=== PATIENT | male | born 1935 | race Caucasian/White ===

== ENCOUNTER 2017-01-21 11:20 | Inpatient (IN) ==
[2017-01-16 18:40] LABS: Basophils # (Auto) 0 K/mcL (0.0-0.3); Basophils % (Auto) 1.2 % (0.0-2.0); Eosinophils # (Auto) 0.2 K/mcL (0.0-0.7); Eosinophils % (Auto) 4.9 % (0.0-7.0); Granulocytes % (Auto) 35.6 % (38.0-78.0); Lymphocytes # (Auto) 1.5 K/mcL (1.5-4.8); Lymphocytes % (Auto) 47.6 % (15.5-49.0); Mean Cell Volume 109.7 fL (80.0-100.0); Mean Corpuscular Hemoglobin 38.4 pg (26.0-34.0); Monocytes # (Auto) 0.3 K/mcL (0.1-0.9); Monocytes % (Auto) 10.7 % (1.0-12.0); Platelet Count 197 K/mcL (140-440); RBC 2.39 M/mcL (4.50-5.90); Red Cell Distribution Width 15.2 % (11.5-14.5)
[2017-01-16 18:50] LABS: Blood Urea Nitrogen 20 mg/dl (8-23)
[2017-01-16 19:08] LABS: Appearance,Urine HAZY; Bacteria,Urine 0 /hpf (0); Bilirubin,Urine NEG (NEG); Color,Urine YELLOW; Glucose,Urine (UA) NEGATIVE (NEG); Leukocyte Esterase,Urine NEG /uL (NEG); Mucus,Urine MANY /hpf (0); Nitrate,Urine NEG (NEG); Protein,Urine 30 mg/dL (NEG); Urine Blood NEG mg/dL (<0.03); Urine RBC 1 /hpf (0-1); Urine Squamous Epithelial Cell 0 /hpf (0-4); Urine WBC 2 /hpf (0-4)
[~2017-01-21 11:20] MED LIST: ACETAMINOPHEN 500 MG TABLET PO SCH; CELECOXIB 200 MG CAPSULE PO SCH; KETOROLAC 30 MG, ROPIVACAINE HCL/PF 49.5 ML, EPINEPHrine 0.5 MG, 0.9 % SODIUM CHLORIDE ... IJ SCH; PREGABALIN 75 MG CAPSULE PO SCH; ceFAZolin 1 GM VIAL IV SCH; oxyCODONE 10 MG TAB.ER.12H PO SCH
[2017-01-21] MEDS ORDERED: GENTAMICIN SULFATE 800 MG/20 ML VIAL IR ONE (13:04)
[2017-01-21] MEDS ORDERED: PROMETHAZINE 25 MG/ML VIAL IV PRN (13:53)
[2017-01-21] MEDS ORDERED: BENZOCAINE/MENTHOL 1 LOZENGE PO PRN ×2 (13:53→14:31)
[2017-01-21] MEDS ORDERED: LACTATED RINGERS 250 ML IV PRN (13:53)
[2017-01-21] MEDS ORDERED: fentaNYL 100 MCG/2 ML VIAL IV PRN (13:53)
[2017-01-21] MEDS ORDERED: FLUMAZENIL 0.1 MG/ML ML IV PRN (13:53)
[2017-01-21] MEDS ORDERED: NALOXONE HCL 0.4 MG/ML VIAL IV PRN (13:53)
[2017-01-21] MEDS ORDERED: PROMETHAZINE 25 MG/ML VIAL IM PRN (13:53)
[2017-01-21] MEDS ORDERED: ONDANSETRON 4 MG/2 ML VIAL IV PRN ×2 (13:53→14:31)
[2017-01-21] MEDS ORDERED: METHOCARBAMOL 1,000 MG/10 ML VIAL IV PRN (13:53)
[2017-01-21] MEDS ORDERED: IPRATROPIUM/ALBUTEROL 3 ML AMPUL.NEB NEB PRN (13:53)
[2017-01-21] MEDS ORDERED: MEPERIDINE 25 MG/ML SYRINGE IV PRN (13:53)
[2017-01-21] MEDS ORDERED: diphenhydrAMINE 50 MG/ML VIAL IV PRN (13:53)
[2017-01-21] MEDS ORDERED: ePHEDrine 50 MG/ML AMPUL IV PRN (13:53)
[2017-01-21] MEDS ORDERED: MEPERIDINE 50 MG/ML SYRINGE IM PRN (13:53)
[2017-01-21] MEDS ORDERED: LACTATED RINGERS 1,000 ML IV SCH (14:00)
[2017-01-21] MEDS ORDERED: FLEETS ADULT ENEMA PR PRN (14:31)
[2017-01-21] MEDS ORDERED: BISACODYL 10 MG SUPP.RECT PR PRN (14:31)
[2017-01-21] MEDS ORDERED: ACETAMINOPHEN 325 MG TABLET PO PRN (14:31)
[2017-01-21] MEDS ORDERED: POLYETHYLENE GLYCOL 3350 17 GM PACKET PO PRN (14:31)
[2017-01-21] MEDS ORDERED: MAGNESIUM HYDROXIDE 30 ML ORAL.SUSP PO PRN (14:31)
[2017-01-21] MEDS ORDERED: TEMAZEPAM 15 MG CAPSULE PO PRN (14:31)
[2017-01-21] MEDS ORDERED: TRANEXAMIC ACID 1,000 MG/10 ML VIAL IV ONE (14:31)
--- NOTE | 2017-01-21 14:31 | Brief Operative Note ---
Date of procedure: 01/21/17 Pre-op diagnosis: Right knee medial djd Post-op diagnosis: same Procedure: right knee revision from patellar femoral to tka Grafts/Implants: Yes Anesthesia: GETA Complications: none Surgeon: Koko Burnette Process Plant Operator: Farooq Dean Estimated blood loss (cc): 50 Tourniquet Time (Minutes): 42 Specimens Removed/Pathology: none sent Condition: stable Disposition: PACU
--- NOTE | 2017-01-21 15:18 | XRay Report ---
CLINICAL INFORMATION: Postsurgical follow-up TECHNIQUE: AP and crosstable lateral right knee COMPARISON: Previous examination dated 04/09/2016 FINDINGS: Status post revision of right knee arthroplasty. There are now findings consistent with total knee arthroplasty. Femoral and tibial complements are in anatomic positions. There is soft tissue gas and intra-articular gas. IMPRESSION: Status post right total knee arthroplasty Interpreted and Authenticated by: Eugene Logan 01/21/17
--- NOTE | 2017-01-21 15:36 | Operative Note ---
DATE OF OPERATION: 01/21/2017 PREOPERATIVE DIAGNOSIS: Continued pain in the right knee with medial and anterolateral joint pain. POSTOPERATIVE DIAGNOSES: Continued pain in the right knee with medial and anterolateral joint pain with arthritis of the medial compartment. PROCEDURE: Right total knee arthroplasty revision from a patellofemoral joint to a total knee arthroplasty. SURGEON: Koko Burnette M.D. DIE TRIMMER: Farooq Dean PA-C. ANESTHESIA: General LMA anesthesia. COMPLICATIONS: None. TOTAL TOURNIQUET TIME: 42 minutes. ESTIMATED BLOOD LOSS: 50 mL. DESCRIPTION OF PROCEDURE: The patient was brought to the operating room and put to sleep with general LMA anesthesia. Once asleep, the patient had the right knee confirmed as the operative site after the time out and preop antibiotics and tranexamic acid given. We then made a midline incision, a mid vastus approach performed. Inspecting the knee revealed impingement of the lateral joint line of the patellofemoral joint, as well as severe arthritis of the medial femoral condyle with large linear areas of complete bone exposed, joint space narrowed medially, intact ACL and PCL. Lateral compartment appeared to be in good condition, and a small tear of the medial meniscus. With these findings, we converted the patient from a patellofemoral joint to a total knee arthroplasty. The patellofemoral joint was removed using flexible osteotomes. We placed two pins above and below the knee and registered thirty points within the joint on the femur and tibia. We registered the femoral intra-articular pins. We registered the center of hip rotation and registered the medial and lateral malleoli. We then brought in the robot after completely exposing the knee. We brought the robot in and registered the robot to confirm its position. We made our distal femoral cut and posterior chamfer cut. We changed the blade and then made our posterior, anterior cuts and our anterior chamfer cut. Bony fragments were removed. We then made our tibial cut, and these fragments were removed along with the meniscus remnants and osteophytes in the posterior femoral condyle. We injected the soft tissues of the posterior capsule with a post-inject formula. We then trialled and set rotation of the tibial baseplate. Once this was done, we then placed the femoral component. It seemed to fit very nicely. Once done, we then trialed the size 11 and then a 9 poly. The patient's 9 seemed to fit the best. It was the most appropriate in tension in both flexion and extension. The 11 had 4 degrees of flexion contracture. The 9 had 0 degrees extension. He started at +2 extension preoperatively. With these findings, we then cemented into place the tibial baseplate, the femoral component. Excess cement was removed. A 9 mm poly was inserted. The knee was kept at 45 degrees until all the cement was dry. We then took the knee through range of motion. This patella wanted to track a little bit laterally and so a small lateral release was performed. We then irrigated and repaired the medial capsule with #1 Stratafix x2 stitches. We took the knee through range of motion, achieving easily full range of motion. The intra-articular pins were removed, as well as the femoral and tibial pins and arrays. We then closed the wounds with 4-0 nylon above and below the knee, and then the knee was closed with adhesive closure. A sterile bandage was applied. The patient left the operating room after deflating the tourniquet at 42 minutes. There was no complication. RBDomo:carirngton Job ID: [id number] Doc ID: [id number] Koko Burnette MD
[2017-01-21] MEDS: oxyCODONE/APAP 5/325MG TABLET PO PRN ×2 (16:28→21:01)
[2017-01-21] MEDS: 0.45 % SODIUM CHLORIDE 1,000 ML IV SCH (16:39)
[2017-01-21] MEDS: KETOROLAC 15 MG/ML VIAL IV SCH ×2 (17:36→23:49)
[2017-01-21] MEDS: HYDROmorphone 2 MG/ML SYRINGE IV PRN ×2 (18:42→20:58)
[2017-01-21] MEDS ORDERED: SENNOSIDES 1 TABLET PO SCH (21:00)
[2017-01-21] MEDS: ASPIRIN 325 MG ENTERIC COATED TABLET PO SCH (21:00)
[2017-01-21] MEDS: DOCUSATE SODIUM 100 MG CAPSULE PO SCH (21:01)
[2017-01-21] MEDS: 0.9 % SODIUM CHLORIDE 10 ML SYRINGE IV SCH (21:01)
[2017-01-21] MEDS: ceFAZolin 1 GM VIAL IV SCH (21:08)
[2017-01-22] MEDS: oxyCODONE/APAP 5/325MG TABLET PO PRN ×3 (00:52→09:50)
[2017-01-22] MEDS: 0.45 % SODIUM CHLORIDE 1,000 ML IV SCH ×2 (00:53→10:45)
[2017-01-22] MEDS: ceFAZolin 1 GM VIAL IV SCH (05:16)
[2017-01-22] MEDS: KETOROLAC 15 MG/ML VIAL IV SCH ×2 (05:22→12:36)
[2017-01-22] MEDS: 0.9 % SODIUM CHLORIDE 10 ML SYRINGE IV SCH (05:35)
[2017-01-22] MEDS ORDERED: LEVOTHYROXINE 50 MCG TABLET PO SCH (07:30)
[2017-01-22] MEDS ORDERED: OMEPRAZOLE 20 MG CAPSULE PO SCH (07:30)
--- NOTE | 2017-01-22 07:33 | Orthopedic Progress Note ---
Subjective Patient information: Note initiated : 01/22/17 at 7:32 am Service Date, if different from initiated Date: [] Patient: Donte Quispe 81 y/o M admitted on 01/21/17 for Right Total Knee Arthroplasty Robotic From. Chief Complaint: [Pt is stable this morning on post operative day 1 without any significant concerns or complaints. Patients vital signs have remained stable. Patients dressing is dry and exhibits a grossly intact neurovascular and neuromotor exam. Patients 10 point ROS is otherwise negative. ] Objective Vital signs: Vital Signs Temp Pulse Resp BP BP Pulse Ox 01/22/17 07:11 18 96 01/22/17 07:09 96 01/22/17 03:03 97.3 F 71 22 123/54 97 01/21/17 23:30 97.6 F 76 24 H 138/55 96 01/21/17 20:00 97.7 F 76 24 H 142/64 96 01/21/17 17:30 71 124/57 94 01/21/17 17:00 88 140/63 91 01/21/17 16:15 61 129/58 100 01/21/17 16:00 59 L 127/58 100 01/21/17 15:45 60 120/58 100 01/21/17 15:35 98.0 F 61 20 114/57 100 01/21/17 15:20 63 17 115/48 100 01/21/17 15:14 69 13 114/44 98 01/21/17 15:03 68 14 114/65 98 01/21/17 14:59 74 14 106/41 95 01/21/17 14:55 71 12 112/46 99 01/21/17 14:48 99.5 F H 67 12 109/45 100 01/21/17 11:20 97.4 F 62 24 H 119/57 100 Intake and Output 01/21/17 01/22/17 01/22/17 21:59 05:59 13:59 Intake Total 2532 / 2532 1273 / 1273 Output Total 675 / 675 1125 / 1125 Balance 1857 / 1857 148 / 148 Intake: IV 1300 / 1300 823 / 823 Sodium Chloride 0.45% 1,000 ml 823 / 823 @ 100 mls/hr IV .Q10H SONU Rx#: [id number] Oral 1140 / 1140 450 / 450 IV - Manual Only 92 / 92 Output: Void Amount 475 / 475 1125 / 1125 Estimated Blood Loss 200 / 200 Other: Meal Dinner Percent of Meal Consumed 100% # Voids 1 Weight 202 lb 8 oz Intake & Output: Intake & Output 01/21/17 01/22/17 01/22/17 21:59 05:59 13:59 Intake Total 2532 / 2532 1273 / 1273 Output Total 675 / 675 1125 / 1125 Balance 1857 / 1857 148 / 148 Weight 202 lb 8 oz Intake: IV 1300 / 1300 823 / 823 Sodium Chloride 0.45% 1,000 ml 823 / 823 @ 100 mls/hr IV .Q10H SONU Rx#: [id number] Oral 1140 / 1140 450 / 450 IV - Manual Only Output: Void Amount 475 / 475 1125 / 1125 Estimated Blood Loss 200 / 200 Other: Meal Dinner Percent of Meal Consumed 100% # Voids 1 Incision: Yes healing Incision clean and dry: Yes Dressing: Yes clean Weight bearing status: full Neurological exam IM: Yes motor sensory intact, Yes neurovascular intact Extremities exam IM: Yes Foot pink and warm, Yes neurovascular intact - Labs CBC & BMP: 01/22/17 04:25 01/16/17 16:41 Labs: Orthopedic Labs 01/21/17 01/16/17 11:34 16:41 PT 15.2 H INR 1.2 H APTT 33 30 01/22/17 01/16/17 04:25 16:41 Hgb 9.2 L Hct 20.4 L* 26.2 L Assessment and Plan (1) Hx of total knee arthroplasty The patient has been educated regarding dressing care, Physical Therapy recommendations, home exercises, restrictions, and follow up appointments. The patient has had all necessary DME prescribed. The patient has remained stable during their hospital course. The patient was discharge with a stable exam. Status: Acute
--- NOTE | 2017-01-22 07:37 | Discharge Summary ---
Ortho Discharge - TKA - Patient Instructions Diet: Regular Diet Activity: activity as tolerated, weight bearing as tolerated Total Knee Protocol: For Total Knee: Start ROM [place] with stationary bike or rocking chair. Work on gaining full extension of knee. Posterior dislocation precautions provided. Hip abductor strengthening and gait training instructions provided. Apply Cryocuff as instructed. Dressing Care: May shower in 3 days, Aquacel Ag - leave on for 5 days Patient Education: Total Knee Replacement (DC) - Problem Maintenance (1) Hx of total knee arthroplasty Status: Acute - Follow Up Plan Follow Up Appointments: Koko Burnette MD [Physician] - 02/05/17 11:20 am Disposition: Home, Self-Care Prognosis: Good Rehab Potential: Good I certify that the patient requires SNF services: No Overall status at discharge: patient is progressing back to baseline - Orders For Discharge Prescriptions: Aspirin [Ecotrin] 325 mg PO BID #75 tab.ec Docusate Sodium [Colace] 100 mg PO BID #60 cap oxyCODONE/APAP [Percocet 5-325 mg] 1 - 2 tab PO Q4HP PRN #75 tab PRN Reason: Pain
[2017-01-22] MEDS ORDERED: MAGNESIUM OXIDE 400 MG TABLET PO SCH (09:00)
[2017-01-22] MEDS ORDERED: DULoxetine 30 MG CAPSULE PO SCH (09:00)
[2017-01-22] MEDS ORDERED: VITAMIN B COMPLEX 1 CAPSULE PO SCH (09:00)
[2017-01-22] MEDS ORDERED: VITAMIN D3 1,000 UNIT TABLET PO SCH (09:00)
[2017-01-22] MEDS: ASPIRIN 325 MG ENTERIC COATED TABLET PO SCH (09:41)
[2017-01-22] MEDS: DOCUSATE SODIUM 100 MG CAPSULE PO SCH (09:41)
[2017-01-22] MEDS ORDERED: ROPIVACAINE HCL/PF 20 ML VIAL IJ ONE (12:50)
[2017-01-22] MEDS ORDERED: ONDANSETRON 4 MG/2 ML VIAL IV ONE (12:50)
[2017-01-22] MEDS ORDERED: DEXAMETHASONE 10 MG/ML VIAL IV ONE (12:50)
[2017-01-22] MEDS ORDERED: TRANEXAMIC ACID 1,000 MG/10 ML VIAL IV ONE (12:50)
[2017-01-22] MEDS ORDERED: MIDAZOLAM 2 MG/2 ML VIAL IV ONE (12:50)
[2017-01-22] MEDS ORDERED: LIDOCAINE HCL/PF 100 MG/5 ML SYRINGE IV ONE (12:50)
[2017-01-22] MEDS ORDERED: PROPOFOL 200 MG/20 ML VIAL IV ONE (12:50)
== END 2017-01-22 14:05 | disposition home or self-care (01) | DRG 470 ==
LOC: MEDSUR 11:20
PROVIDERS: ADMIT Orthopaedic Surgery; ATTEND Orthopaedic Surgery

== ENCOUNTER 2019-07-17 13:45 | Inpatient (IN) ==
--- NOTE | 2019-07-17 14:21 | Emergency Department Note ---
Fall HPI - General Chief Complaint: Fall Stated Complaint: fall Time Seen by Provider: 07/17/19 14:00 Source: patient Mode of arrival: ambulatory - History of Present Illness HPI Narrative: 83-year-old male patient presents emergency department with chief complaint of worsening right hip and right knee pain associated with a fall earlier this morning. Patient tells me he was in [place] at a [facility] clinic when he abruptly stood up becoming dizzy. He has known history of syncopal episodes and fell during this time. The staff at the clinic did some form evaluation and told him that "my blood pressure dropped too fast". He told them about the pain in his right hip and they simply told him to get further evaluated later on. Patient took a dose of tramadol as he came home but tells me this is not been very effective. Upon arrival, his chief complaint would be exquisite right hip pain. He admits to not being able to ambulate secondary to the pain. He mentions a previous history of total right knee replacement. He admits to having some form of injection to his right knee, right hip, and right side of his low back yesterday by the pain specialist Dr. Farah). Patient denies any radiculopathy. He denies any saddle anesthesia or bowel/bladder incontinence. He denies any preceding vision changes, shortness of breath, or chest pain prior to falling. He denies any recent illnesses, fever, sweats, chills. He denies any abdominal pain, nausea, vomiting, or diarrhea. 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 - Related Data Home Medications Medication Instructions Recorded Confirmed Magnesium 400 mg PO QDAY 04/04/16 07/17/19 Vitamin B Complex 1 cap PO DAILY 12/19/16 07/17/19 cholecalciferol (vitamin D3) 25 5,000 unit PO DAILY tab 12/11/18 07/17/19 mcg (1,000 unit) tablet levothyroxine 75 mcg capsule 50 mcg PO QDAY 12/29/18 07/17/19 blood sugar diagnostic See Rx Instructions .ROUTE 05/06/19 07/17/19 .MEDSUPPLY #10 each blood-glucose meter, drum-type See Rx Instructions .ROUTE 05/06/19 07/17/19 .MEDSUPPLY #1 each lancets See Rx Instructions .ROUTE 05/06/19 07/17/19 .MEDSUPPLY #50 each tamsulosin 0.4 mg capsule 0.4 mg PO QDAY 05/07/19 07/17/19 Ascorbic Acid [Vitamin C] 1,000 mg PO DAILY 07/17/19 07/17/19 Multivitamin/Iron/Folic Acid 1 each PO DAILY 07/17/19 07/17/19 [Centrum Adults Tablet] Vitamin K2 180 mcg PO TID 07/17/19 07/17/19 Previous Rx's Medication Instructions Recorded omeprazole 40 mg capsule,delayed 40 mg PO QDAY #90 cap 01/13/19 release trazodone 50 mg tablet 50 - 100 mg PO QHS #180 tab 05/29/19 Allergies Allergy/AdvReac Type Severity Reaction Status Date / Time No Known Drug Allergies Allergy Verified 06/01/19 14:44 Review of Systems All systems ED: reviewed and negative except as stated. Fall PMH - Social History smoking status: Never smoker Physical Exam Limitations: no limitations General appearance: alert, grimacing (Well-developed, well-nourished, 83-year-old male patient laying semirecumbent on the emergency room gurney in no acute respiratory distress. He does grimace considerably during musculoskeletal exam of his right hip.), in no apparent distress, other Head: atraumatic, normocephalic Eye: Present: normal appearance, PERRL, EOMI. Absent: scleral icterus, conjunctival injection ENT: Present: normal oropharynx, mucous membranes moist Neck: Present: normal inspection, full ROM, trachea midline, lymphadenopathy. Absent: tenderness Chest: Present: symmetric chest wall rise Respiratory: Present: normal lung sounds bilaterally. Absent: respiratory distress, wheezes, stridor, accessory muscle use, prolonged expiratory phase Cardiovascular: Present: regular rate, normal rhythm, systolic murmur. Absent: diastolic murmur Abdominal: Present: soft. Absent: distention, tenderness, guarding, rebound, rigidity, organomegaly, mass Extremities: Present: normal inspection, tenderness (Tenderness palpation to the right greater trochanter.), normal capillary refill. Absent: full ROM (Decreased range of motion to the right hip secondary to worsening pain), pedal edema Neurological: Present: alert, oriented X3, reflexes normal. Absent: normal gait, motor sensory deficit Psychiatric: Present: normal affect, normal mood Skin: Present: warm, dry, pallor Course Course Narrative: Patient was brought into the emergency department and a history and physical exam was performed. Screening laboratory studies were performed. Orthostatic vital signs were ordered and reviewed. Patient has longstanding history of syncope associated with orthostatic hypotension. He has a robust neurologic examination and no other neuro imaging seems warranted at this time. Patient has considerable pain with any movement of his right hip. This, coupled with recent fall today, necessitates radiographs of the right hip be ordered and reviewed. Patient is in no considerable pain while laying motionless so no additional pain medication is going to be provided at this time. We may give him pain medication during his visit if his pain worsens. Upon reevaluation patient tells me his pain is worsening over time. Radiographs of the affected hip showed a femoral neck fracture that may represent avascular necrosis. Radiologist did recommend CT scan of the right hip to help clarify the injury. During this time an IV was established patient was given Dilaudid 0.[address] scan was ordered as recommended. Upon reevaluation patient tells me that his pain is well controlled with 1 dose of IV pain medication. CT scan results showed subcapital fracture of the right femoral neck. There is also mention of osteoarthritis to both hips. With this in mind, I reached out to the on-call orthopedic surgeon (Dr. Becker) I discussed the case with him. At this time Dr. Becker recommended that we speak to the hospitalist about having the patient admitted to the medical service. He would then consult in as the orthopedic surgeon to help correct hip fracture. With this in mind, I reached out to the hospitalist (Dr. Brown) and discussed the case with him. At this time Dr. Brown has accepted to admit the patient into the medical service with Dr. Becker consulting about the fracture management. At this time all further treatment decisions, modalities, and ultimate patient disposition will be carried out by Dr. Brown with Dr. Becker in consultation. Vital Signs Temperature 97.7 F 07/17/19 13:46 Pulse Rate 65 07/17/19 13:46 Respiratory Rate 07/17/19 13:46 Blood Pressure 107/92 07/17/19 13:46 Pulse Oximetry (%) 100 07/17/19 13:46 Temperature 97.7 F 07/17/19 13:46 Pulse Rate 76 07/17/19 17:20 Respiratory Rate 07/17/19 13:46 Blood Pressure 124/53 07/17/19 17:20 Pulse Oximetry (%) 98 07/17/19 17:20 Fall - Lab Data Lab results reviewed: Yes I reviewed the patient's lab results. Result diagrams: 07/17/19 14:20 07/17/19 14:20 Lab Results 07/17/19 07/17/19 Range/Units 14:20 14:20 WBC 12.5 H (4.50-11.00) K/mcL RBC 2.13 L (4.63-6.08) M/mcL Hgb 8.6 L (13.7-17.5) g/dL Hct 23.6 L (40.1-51.0) % MCV 110.8 H (80.0-100.0) fL MCH 40.4 H (26.0-34.0) pg MCHC 36.4 H (31.0-36.0) g/dL RDW 15.5 H (11.5-14.5) % Plt Count 225 (140-440) K/mcL MPV 12.0 H (7.4-10.4) fL Gran % 89.8 H (38.0-78.0) % Lymph % (Auto) 5.6 L (15.5-49.0) % [place] % (Auto) 4.4 (1.0-12.0) % Eos % (Auto) 0 (0.0-7.0) % Baso % (Auto) 0.2 (0.0-2.0) % Gran # 11.23 H (1.80-8.00) K/mcL Lymph # (Auto) 0.70 L (1.50-4.80) K/mcL [place] # (Auto) 0.55 (0.10-0.90) K/mcL Eos # (Auto) 0 (0.00-0.70) K/mcL Baso # (Auto) 0.02 (0.00-0.30) K/mcL Sodium 136 (133-145) mmol/L Potassium 3.8 (3.3-5.1) mmol/L Chloride 102 (96-108) mmol/L Carbon Dioxide 23 (22-30) mmol/L Anion Gap 11.0 (8-16) BUN 23 (8-23) mg/dl Creatinine 0.9 (0.7-1.2) mg/dl GFR Calculation 78 Glucose 124 H (70-105) mg/dL Calcium 9.5 (8.6-10.4) mg/dl Total Bilirubin 1.5 H (0.0-1.0) mg/dL AST 29 (0-37) U/l ALT 25 (0-40) U/l Alkaline Phosphatase 56 (39-117) U/L Total Protein 7.0 (5.9-8.4) gm/dL Albumin 4.7 (3.2-5.2) gm/dL Globulin 2.3 (2.2-3.7) gm/dL Albumin/Globulin Ratio 2.0 (1.0-2.3) - Radiology Data Radiology results reviewed: Yes I reviewed the patient's radiology results. Ordering Physician: Panchito Armenta PA-C Date of Service: 07/17/19 Procedure(s): XR hip RT comp 2VW Accession Number(s): [id number] HISTORY: Right hip pain and unable to bear weight FINDINGS: There is a subtle contour deformity along the weightbearing portion of the femoral head. There is a subchondral lucency along the top of the femoral head. Small fracture seen in the cortex along the lateral border of the femoral head and neck joint. The joint space is mildly narrowed along the medial aspect. There are small periarticular soft tissue calcifications. Mild arthritis is present in the left hip with is no fracture or destructive lesion. There is disc degeneration and arthritis in the lumbar spine. The bones are osteopenic. IMPRESSION: fractured right femoral head and neck. There may be underlying avascular necrosis. Ordering Physician: Panchito Armenta PA-C Date of Service: 07/17/19 Procedure(s): CT pelvis wo con Accession Number(s): [id number] History: Fell and right hip fracture TECHNIQUE: The pelvis was imaged without contrast at 2.5 mm intervals. Sagittal and coronal reformats were created. The radiation exposure was limited using dose reduction technology. FINDINGS: There is an acute subcapital fracture in the right femoral neck. There is minimal impaction at the fracture site and no angulation. There is underlying osteoarthritis with a ring of spurs forming along the margin of the femoral head and there are subchondral cysts in the femoral head. Joint spaces moderately narrowed along the medial aspect due to arthritis. No pelvic fractures present. The left hip has mild to moderate arthritis but there is no fracture. The bones throughout the pelvis are osteoporotic. There is no evidence of avascular necrosis. Severe disc degeneration is present at L5-S1 with moderate degeneration at L3-4 and L4-5. SI joints are normal. No pelvic hematoma is present. IMPRESSION: Subcapital fracture in the right femoral neck Osteoarthritis in both hips Panchito Armenta was called with the results Interpreted and Authenticated by: He Pantoja 07/17/19 Disposition Pt seen by MANAGER COMMODITIES/PA only: Yes Clinical Impression: Orthostatic hypotension Closed right hip fracture Qualifiers: Encounter type: initial encounter Qualified Code(s): S72.001A - Fracture of unspecified part of neck of right femur, initial encounter for closed fracture Disposition: Xfer As Inpt ([facility]) Condition: Good Referrals: Katie Elliott ARNP [Primary Care Provider] -
--- NOTE | 2019-07-17 14:50 | XRay Report ---
HISTORY: Right hip pain and unable to bear weight FINDINGS: There is a subtle contour deformity along the weightbearing portion of the femoral head. There is a subchondral lucency along the top of the femoral head. Small fracture seen in the cortex along the lateral border of the femoral head and neck joint. The joint space is mildly narrowed along the medial aspect. There are small periarticular soft tissue calcifications. Mild arthritis is present in the left hip with is no fracture or destructive lesion. There is disc degeneration and arthritis in the lumbar spine. The bones are osteopenic. IMPRESSION: fractured right femoral head and neck. There may be underlying avascular necrosis. Interpreted and Authenticated by: He Pantoja 07/17/19
[2019-07-17 14:57] LABS: Basophils # (Auto) 0.02 K/mcL (0.00-0.30); Basophils % (Auto) 0.2 % (0.0-2.0); Eosinophils # (Auto) 0 K/mcL (0.00-0.70); Eosinophils % (Auto) 0 % (0.0-7.0); Granulocytes % (Auto) 89.8 % (38.0-78.0); Hematocrit 23.6 % (40.1-51.0); Hemoglobin 8.6 g/dL (13.7-17.5); Lymphocytes % (Auto) 5.6 % (15.5-49.0); Mean Cell Volume 110.8 fL (80.0-100.0); Mean Corpuscular HGB Conc 36.4 g/dL (31.0-36.0); Monocytes # (Auto) 0.55 K/mcL (0.10-0.90); Monocytes % (Auto) 4.4 % (1.0-12.0); Platelet Count 225 K/mcL (140-440); RBC 2.13 M/mcL (4.63-6.08); Red Cell Distribution Width 15.5 % (11.5-14.5); WBC 12.5 K/mcL (4.50-11.00)
[2019-07-17 15:12] LABS: ALT/SGPT 25 U/l (0-40); AST/SGOT 29 U/l (0-37); Albumin 4.7 gm/dL (3.2-5.2); Alkaline Phosphatase 56 U/L (39-117); Bilirubin,Total 1.5 mg/dL (0.0-1.0); Blood Urea Nitrogen 23 mg/dl (8-23); Calcium 9.5 mg/dl (8.6-10.4); Carbon Dioxide 23 mmol/L (22-30); Chloride 102 mmol/L (96-108); Globulin 2.3 gm/dL (2.2-3.7); Glomerular Filtration Rate 78; Glucose 124 mg/dL (70-105)
[2019-07-17] MEDS ORDERED: HYDROmorphone 0.5 MG/0.5 ML SYRINGE IV PRN ×3 (15:42→20:51)
--- NOTE | 2019-07-17 16:22 | Cat Scan Report ---
History: Fell and right hip fracture TECHNIQUE: The pelvis was imaged without contrast at 2.5 mm intervals. Sagittal and coronal reformats were created. The radiation exposure was limited using dose reduction technology. FINDINGS: There is an acute subcapital fracture in the right femoral neck. There is minimal impaction at the fracture site and no angulation. There is underlying osteoarthritis with a ring of spurs forming along the margin of the femoral head and there are subchondral cysts in the femoral head. Joint spaces moderately narrowed along the medial aspect due to arthritis. No pelvic fractures present. The left hip has mild to moderate arthritis but there is no fracture. The bones throughout the pelvis are osteoporotic. There is no evidence of avascular necrosis. Severe disc degeneration is present at L5-S1 with moderate degeneration at L3-4 and L4-5. SI joints are normal. No pelvic hematoma is present. IMPRESSION: Subcapital fracture in the right femoral neck Osteoarthritis in both hips Panchito Armenta was called with the results Interpreted and Authenticated by: He Pantoja 07/17/19
--- NOTE | 2019-07-17 17:22 | Orthopedic History & Physical ---
History of Present Illness Patient information: Note initiated : 07/17/19 at 5:19 pm Service Date, if different from initiated Date: [] Patient: Sundeep Quispe 83 y/o M admitted on for fall. Chief Complaint: R Hip Pain s/p fall. HPI: Mr. Quispe is a 83 year old M Pt admits to falling earlier today when he became dizzy and lightheaded. Pt admits to a history of syncopal episodes. Pt was being seen for another problem at a medical clinic in [place] when he fell. I quick evaluation was done and they recommended that he seek further treatment when he got home. He continued to have worsening pain and presented to the ED. X-rays and CT scan done and Ortho was consulted. Review of Systems Constitutional: as per HPI Cardiovascular: as per HPI, lightheadedness Musculoskeletal: right: hip pain, knee pain Integumentary: as per HPI, erythema, furuncle, hirsutism, lesions, new lesions, non-healing lesions, photosensitivity, pruritus, rash, skin pain, acne, skin ulcer, sores, striae, swelling, unusual bruising, wounds, jaundice, other, alopecia, bleeding lesions, change in hair, change in nails, change in pigmentation, changing lesions, dry skin Neurological: no as per HPI, no disequilibrium, no dizziness, no focal weakness, no frequent falls, no headache(s), no lack of coordination, no loss of vision, no memory loss, no numbness, no paresthesias, no abnormal gait, no radicular pain, no restless legs, no sensory deficit, no syncope, no tingling, no tremor(s), no vertigo, no weakness, no other visual disturbances, no other, no abnormal hearing, no abnormal movements, no abnormal speech, no behavioral changes, no burning sensations, no confusion, no convulsions Medications and Allergies Home Medications Medication Instructions Recorded Confirmed Type Magnesium 400 mg PO QDAY 04/04/16 07/17/19 History Vitamin B Complex 1 cap PO DAILY 12/19/16 07/17/19 History cholecalciferol (vitamin D3) 25 10,000 unit PO DAILY tab 12/11/18 06/01/19 History mcg (1,000 unit) tablet levothyroxine 75 mcg capsule 50 mcg PO QDAY 12/29/18 07/17/19 History omeprazole 40 mg capsule,delayed 40 mg PO QDAY #90 cap 01/13/19 07/17/19 Rx release blood sugar diagnostic See Rx Instructions .ROUTE 05/06/19 06/01/19 History .MEDSUPPLY #10 each blood-glucose meter, drum-type See Rx Instructions .ROUTE 05/06/19 06/01/19 History .MEDSUPPLY #1 each lancets See Rx Instructions .ROUTE 05/06/19 06/01/19 History .MEDSUPPLY #50 each tamsulosin 0.4 mg capsule 0.4 mg PO QDAY 05/07/19 07/17/19 History trazodone 50 mg tablet 50 - 100 mg PO QHS #180 tab 05/29/19 07/17/19 Rx Ascorbic Acid [Vitamin C] 1,000 mg PO DAILY 07/17/19 07/17/19 History Multivitamin/Iron/Folic Acid 1 each PO DAILY 07/17/19 07/17/19 History [Centrum Adults Tablet] Vitamin K2 180 mcg PO TID 07/17/19 07/17/19 History Allergies Allergy/AdvReac Type Severity Reaction Status Date / Time No Known Drug Allergies Allergy Verified 06/01/19 14:44 Results - Labs Result Diagrams: 07/17/19 14:20 07/17/19 14:20 Labs: Abnormal lab results 07/17/19 07/17/19 Range/Units 14:20 14:20 WBC 12.5 H (4.50-11.00) K/mcL RBC 2.13 L (4.63-6.08) M/mcL Hgb 8.6 L (13.7-17.5) g/dL Hct 23.6 L (40.1-51.0) % MCV 110.8 H (80.0-100.0) fL MCH 40.4 H (26.0-34.0) pg MCHC 36.4 H (31.0-36.0) g/dL RDW 15.5 H (11.5-14.5) % MPV 12.0 H (7.4-10.4) fL Gran % 89.8 H (38.0-78.0) % Lymph % (Auto) 5.6 L (15.5-49.0) % Gran # 11.23 H (1.80-8.00) K/mcL Lymph # (Auto) 0.70 L (1.50-4.80) K/mcL Glucose 124 H (70-105) mg/dL Total Bilirubin 1.5 H (0.0-1.0) mg/dL H & H 07/17/19 Range/Units 14:20 Hgb 8.6 L (13.7-17.5) g/dL Hct 23.6 L (40.1-51.0) % All other labs normal.
[2019-07-17] MEDS ORDERED: PROCHLORPERAZINE 10 MG/2 ML VIAL IV PRN ×2 (18:21→20:51)
[2019-07-17] MEDS ORDERED: DEXTROSE 31 GM ORAL.SUSP PO PRN ×2 (18:21→20:51)
[2019-07-17] MEDS ORDERED: DEXTROSE 50% 50 ML VIAL IV PRN ×2 (18:21→20:51)
[2019-07-17] MEDS ORDERED: ONDANSETRON 4 MG/2 ML VIAL IV PRN ×3 (18:21→20:51)
[2019-07-17 18:25] LABS: INR 1.2 (0.9-1.1); Prothrombin Time 15.4 sec (11.9-14.5)
[2019-07-17] MEDS ORDERED: traMADol 50 MG TABLET PO PRN (18:26)
[2019-07-17] MEDS ORDERED: 0.9 % SODIUM CHLORIDE 1,000 ML IV SCH ×2 (18:30→20:51)
--- NOTE | 2019-07-17 18:46 | Internal Med History&Physical ---
Medical - H&P: [facility] Patient information: Note initiated : 07/17/19 at 6:38 pm Service Date, if different from initiated Date: [] Patient: Sundeep Quispe a 83 y/o M admitted on for fall. Chief Complaint: [fall and right hip pain] History of present illness: Mr. Quispe is a 83 year old M with a past medical history of aortic stenosis, hypothyroidism, orthostatic hypotension, near syncope, and diabetes who was brought to the ER due to 1 episode of fall and right hip pain. As per patient, he felt dizzy and fell in the early this morning when he he abruptly stood up in a clinic. He was told by the staff at clinic "blood pressure dropped too fast". He denies loss of consciousness and injury to his head. In the ER, Xray showed subcapital fracture in the right femoral neck. Orth Dr. Becker was consulted, who will probably give pt a procedural intervention. When I saw this patient in the ER, other than the symptoms mentioned above, he denied headache, dizziness, chest pain, shortness of breath, abdominal pain, nausea, vomiting, or dysuria. No tingling or numbness of legs. No urinary or bowel incontinence. No recent travel or sick contact. Review of systems: Positive for right hip pain. All other systems were reviewed and are negative. Medical - H&P: PMH Family history: reviewed and not pertinent (Mother had Alzheimer's disease; father had a cancer) Have you smoked in the last 12 months: No Drug use: none Alcohol use: none Medical - H&P: Meds Home Medications Medication Instructions Recorded Confirmed Type Magnesium 400 mg PO QDAY 04/04/16 07/17/19 History Vitamin B Complex 1 cap PO DAILY 12/19/16 07/17/19 History cholecalciferol (vitamin D3) 25 5,000 unit PO DAILY tab 12/11/18 07/17/19 History mcg (1,000 unit) tablet levothyroxine 75 mcg capsule 50 mcg PO QDAY 12/29/18 07/17/19 History omeprazole 40 mg capsule,delayed 40 mg PO QDAY #90 cap 01/13/19 07/17/19 Rx release blood sugar diagnostic See Rx Instructions .ROUTE 05/06/19 07/17/19 History .MEDSUPPLY #10 each blood-glucose meter, drum-type See Rx Instructions .ROUTE 05/06/19 07/17/19 History .MEDSUPPLY #1 each lancets See Rx Instructions .ROUTE 05/06/19 07/17/19 History .MEDSUPPLY #50 each tamsulosin 0.4 mg capsule 0.4 mg PO QDAY 05/07/19 07/17/19 History trazodone 50 mg tablet 50 - 100 mg PO QHS #180 tab 05/29/19 07/17/19 Rx Ascorbic Acid [Vitamin C] 1,000 mg PO DAILY 07/17/19 07/17/19 History Multivitamin/Iron/Folic Acid 1 each PO DAILY 07/17/19 07/17/19 History [Centrum Adults Tablet] Vitamin K2 180 mcg PO TID 07/17/19 07/17/19 History Allergies Allergy/AdvReac Type Severity Reaction Status Date / Time No Known Drug Allergies Allergy Verified 06/01/19 14:44 Medical - H&P: Exam - Constitutional Vitals: Temp Pulse Resp BP Pulse Ox 97.7 F 81 20 119/57 99 07/17/19 13:46 07/17/19 18:29 07/17/19 13:46 07/17/19 18:05 07/17/19 18:29 - Other Additional findings: General - No acute distress Eyes - PERRLA, EOM intact ENT no rhinorrhea, no noticeable or palpable swelling, no redness or rash around throat or on face Neck supple, no JVD, no thyromegaly Respiratory: Lungs -clear, no wheezing or crackles. Cardiovascular - RRR no r/g, mild systolic murmur over precardial area. GI - Normal bowel sounds, no distended, soft. Extremeties - No edema, cyanosis or clubbing. Moderate tenderness over the right hip area. Hemo/lymphatic/immune no lymphadenopathy Neurological Alert and oriented x 3, no focal neurological deficits. No numbness in both legs Psychiatry flat affect Medical - H&P: Reslt - Labs CBC & Chem 7: 07/17/19 14:20 07/17/19 14:20 Labs: Short CBC 07/17/19 Range/Units 14:20 WBC 12.5 H (4.50-11.00) K/mcL Hgb 8.6 L (13.7-17.5) g/dL Hct 23.6 L (40.1-51.0) % Plt Count 225 (140-440) K/mcL BMP 07/17/19 14:20 Sodium 136 Potassium 3.8 Chloride 102 Carbon Dioxide 23 BUN 23 Creatinine 0.9 Glucose 124 H Calcium 9.5 Liver Function 07/17/19 Range/Units 14:20 Total Bilirubin 1.5 H (0.0-1.0) mg/dL AST 29 (0-37) U/l ALT 25 (0-40) U/l Alkaline Phosphatase 56 (39-117) U/L Albumin 4.7 (3.2-5.2) gm/dL Medical - H&P: A/P - Narrative A/P Narrative: Assessment: 1. Subcapital fracture in the right femoral neck 2. Aortic stenosis 3. Hypothyoidism 4. Orthostatic hypotension 5. Near syncope 6. 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 Leukocytosis 8. Mechanical fall Plan: 1. X-ray showed Subcapital fracture in the right femoral neck Orthopedist Dr. Becker will do a procedure for his hip fracture. Revised Cardiac Risk Index for Pre-Operative Risk - low. NPO IVF pain management including iv dilaudid 2. Control BP. teletypesetter monitor 3. continue home Synthroid 4. for History of orthostatic hypotension and near syncope, closely monitor his blood pressure. His blood pressure is stable now PT OT He may need assessment from a cardiology and neurology as an patient 5. She is not on insulin Insulin sliding scale 6. Since no focal positive neurological deficits or headache, I will not order a CT of her head at this moment Monitor 7. DVT prophylaxis: No pharmacological DVT prophylaxis at this moment because he will have a procedure 8. CODE STATUS: Full
[2019-07-17] MEDS ORDERED: ceFAZolin 2 GM in DEXTROSE 5% IN WATER 50 ML IV SCH (19:15)
[2019-07-17 19:19] LABS: Hemoglobin A1C 5.4 % HGB (4.0-6.0)
[2019-07-17] MEDS ORDERED: LIDOCAINE HCL/PF 100 MG/5 ML SYRINGE IV ONE (19:25)
[2019-07-17] MEDS ORDERED: KETAMINE 100 MG/ML ML IV ONE (19:25)
[2019-07-17] MEDS ORDERED: PROPOFOL 200 MG/20 ML VIAL IV ONE (19:25)
[2019-07-17] MEDS ORDERED: ONDANSETRON 4 MG/2 ML VIAL IV ONE (19:25)
[2019-07-17] MEDS ORDERED: DEXAMETHASONE 10 MG/ML VIAL IV ONE (19:25)
--- NOTE | 2019-07-17 19:59 | History and Physical Report ---
DATE OF ADMISSION: 07/17/2019 CHIEF COMPLAINT: Right hip pain status post fall. HISTORY OF PRESENT ILLNESS: The patient is an 83-year-old male who earlier today was up in [place] for an appointment at another medical facility when he became dizzy and fell. He does report history of syncopal episodes. He was evaluated at that time and was told to get his right hip checked out later on. He did drive home from [place] and due to the worsening right hip pain and difficulty with ambulation, he presented to the ED at [facility]. X-rays and CT scan were taken which did show a nondisplaced femoral neck fracture. Orthopedics was then consulted. HOME MEDICATIONS: The patient reports magnesium, vitamin B complex, vitamin D3, calcium carbonate with vitamin D, clobetasol ointment, hydrocodone 10/325, lubiprostone, Mometasone, levothyroxine and tamsulosin. ALLERGIES: He denies any allergies to any medications. PAST MEDICAL HISTORY: Positive for aortic stenosis, hypothyroidism, GERD, osteoarthritis. 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 REVIEW OF SYSTEMS: Negative except for what is noted in the HPI. SOCIAL HISTORY: The patient lives at home with his . He denies smoking and denies chewing tobacco. He does report alcohol use 1 to 2 times per month socially. PHYSICAL EXAMINATION: GENERAL: He is alert and oriented x3, has appropriate mood and affect. HEART: Regular rate and rhythm. He does have a murmur noted. He does have palpable tibial pulses bilaterally. RESPIRATORY: Lungs are clear to auscultation bilaterally. MUSCULOSKELETAL: Left lower extremity, the patient has full active and passive range of motion of the ankle, knee and hip. He has 5/5 strength with plantar flexion, dorsiflexion of the ankle and 5/5 knee flexion and extension. The right lower extremity, the patient does have 5/5 strength, plantar flexion, dorsiflexion. He is unable to actively flex and extend the right knee without significant pain as well as his hip. He does have good capillary refill. SKIN: Warm and dry and sensation is grossly intact to light touch. LABORATORY DATA: X-rays did show a nondisplaced femoral neck fracture. The patient does also have underlying osteoarthritis of the hip joint. A CT scan also confirms a nondisplaced femoral neck fracture. IMPRESSION: Nondisplaced femoral neck fracture. PLAN: The patient has elected to proceed with a right hip percutaneous pinning of femoral neck fracture to be performed by Dr. Becker. I had a long discussion with the patient regarding the procedure and the postoperative protocol. I advised the patient risks of surgery including bleeding, infection, injury to nerves, blood vessels, other structures to the area, anesthetic risks, which could result in potential heart attack, stroke, or even . The patient acknowledges these risks and is willing to proceed. Amended 07/20/2019 lac BEATRIZ:hn Job ID: [id number] Doc ID: [id number] Nic Claire PA-C
--- NOTE | 2019-07-17 20:01 | Brief Operative Note ---
Date of procedure: 07/17/19 Pre-op diagnosis: Right nondisplaced femoral neck fracture Post-op diagnosis: same Procedure: Percutaneous screw fixation of right femoral neck fracture Grafts/Implants: Yes (3 6.5 cannulated screws) Anesthesia: GETA Findings: nondisplaced fracture Complications: none Surgeon: Gold Becker Hall Tender: Nic Claire Estimated blood loss (cc): 10 Specimens Removed/Pathology: none sent Condition: stable Disposition: PACU
[2019-07-17] MEDS ORDERED: diphenhydrAMINE 50 MG/ML VIAL IV PRN (20:13)
[2019-07-17] MEDS ORDERED: PROMETHAZINE 25 MG/ML VIAL IV PRN (20:13)
[2019-07-17] MEDS ORDERED: ACETAMINOPHEN 1,000 MG/100 ML BOTTLE IV ONE ×2 (20:13→20:22)
[2019-07-17] MEDS ORDERED: NALOXONE HCL 0.4 MG/ML VIAL IV PRN (20:13)
[2019-07-17] MEDS ORDERED: METHOCARBAMOL 1,000 MG/10 ML VIAL IV PRN (20:13)
[2019-07-17] MEDS ORDERED: LACTATED RINGERS 250 ML IV PRN (20:13)
[2019-07-17] MEDS ORDERED: MEPERIDINE 25 MG/ML SYRINGE IV PRN (20:13)
[2019-07-17] MEDS ORDERED: IPRATROPIUM/ALBUTEROL 3 ML AMPUL.NEB NEB PRN (20:13)
[2019-07-17] MEDS ORDERED: fentaNYL 100 MCG/2 ML VIAL IV PRN (20:13)
[2019-07-17] MEDS ORDERED: BENZOCAINE/MENTHOL 1 LOZENGE PO PRN (20:13)
[2019-07-17] MEDS ORDERED: LACTATED RINGERS 1,000 ML IV SCH (20:15)
[2019-07-17] MEDS ORDERED: INSULIN LISPRO 1 UNIT/0.01 ML UNIT SQ SCH (21:00)
[2019-07-17] MEDS ORDERED: DOCUSATE SODIUM 100 MG CAPSULE PO SCH (21:00)
[2019-07-17] MEDS ORDERED: SENNOSIDES 1 TABLET PO SCH ×2 (21:00)
[2019-07-17] MEDS ORDERED: 0.9 % SODIUM CHLORIDE 10 ML SYRINGE IV SCH (22:00)
[2019-07-17] MEDS: DOCUSATE SODIUM 100 MG CAPSULE PO SCH (22:16)
[2019-07-17] MEDS: INSULIN LISPRO 1 UNIT/0.01 ML UNIT SQ SCH (22:16)
[2019-07-17] MEDS: 0.9 % SODIUM CHLORIDE 10 ML SYRINGE IV SCH (22:17)
[2019-07-17] MEDS: traMADol 50 MG TABLET PO PRN (22:17)
[2019-07-18] MEDS: 0.9 % SODIUM CHLORIDE 10 ML SYRINGE IV SCH (05:25)
[2019-07-18 06:38] LABS: Basophils # (Auto) 0 K/mcL (0.00-0.30); Basophils % (Auto) 0 % (0.0-2.0); Eosinophils # (Auto) 0 K/mcL (0.00-0.70); Eosinophils % (Auto) 0 % (0.0-7.0); Granulocytes % (Auto) 85.5 % (38.0-78.0); Hematocrit 21.4 % (40.1-51.0); Hemoglobin 7.3 g/dL (13.7-17.5); Lymphocytes # (Auto) 0.36 K/mcL (1.50-4.80); Lymphocytes % (Auto) 9.7 % (15.5-49.0); Mean Cell Volume 112.6 fL (80.0-100.0); Mean Corpuscular HGB Conc 34.1 g/dL (31.0-36.0); Monocytes # (Auto) 0.18 K/mcL (0.10-0.90); Monocytes % (Auto) 4.8 % (1.0-12.0); Platelet Count 170 K/mcL (140-440); Red Cell Distribution Width 16.1 % (11.5-14.5); WBC 3.7 K/mcL (4.50-11.00)
[2019-07-18 07:00] LABS: ALT/SGPT 20 U/l (0-40); AST/SGOT 18 U/l (0-37); Albumin 3.9 gm/dL (3.2-5.2); Albumin/Globulin Ratio 1.8 (1.0-2.3); Alkaline Phosphatase 50 U/L (39-117); Bilirubin,Total 0.9 mg/dL (0.0-1.0); Blood Urea Nitrogen 22 mg/dl (8-23); Calcium 8.2 mg/dl (8.6-10.4); Carbon Dioxide 23 mmol/L (22-30); Chloride 100 mmol/L (96-108); Globulin 2.2 gm/dL (2.2-3.7); Glomerular Filtration Rate 78; Glucose 191 mg/dL (70-105); Phosphorous 4.6 mg/dL (2.7-4.5)
[2019-07-18] MEDS ORDERED: LEVOTHYROXINE 50 MCG TABLET PO SCH (07:30)
[2019-07-18] MEDS ORDERED: PANTOPRAZOLE 40 MG TABLET PO SCH ×2 (07:30)
[2019-07-18] MEDS: INSULIN LISPRO 1 UNIT/0.01 ML UNIT SQ SCH ×3 (07:47→16:56)
[2019-07-18] MEDS: traMADol 50 MG TABLET PO PRN ×2 (07:48→16:14)
[2019-07-18] MEDS: DOCUSATE SODIUM 100 MG CAPSULE PO SCH (07:48)
--- NOTE | 2019-07-18 08:51 | Internal Med Progress Note ---
Medical - PN: Subj Patient information: Note initiated : 07/18/19 at 8:47 am Service Date, if different from initiated Date: [] Patient: Sundeep Quispe a 83 y/o M admitted on 07/17/19 for fall. Chief Complaint: [] Interval History: Mr. Quispe is a 83 year old M with a past medical history of aortic stenosis, hypothyroidism, orthostatic hypotension, near syncope, and diabetes who was brought to the ER due to 1 episode of fall and right hip pain. As per patient, he felt dizzy and fell in the early this morning when he he abruptly stood up in a clinic. He was told by the staff at clinic "blood pressure dropped too fast". He denies loss of consciousness and injury to his head. In the ER, Xray showed subcapital fracture in the right femoral neck. Orth Dr. Becker was consulted, who will probably give pt a procedural intervention. When I saw this patient in the ER, other than the symptoms mentioned above, he denied headache, dizziness, chest pain, shortness of breath, abdominal pain, nausea, vomiting, or dysuria. No tingling or numbness of legs. No urinary or bowel incontinence. No recent travel or sick contact. 07/17 He underwent Percutaneous screw fixation of right femoral neck fracture by Dr. Becker on 07/17/19 Pt feels very fine. Pain is controlled. But he told me that he did not sleep well last night because he did not have his sleeping pill last night. Otherwise that he does not have any complaints. Vital signs are stable. Hemoglobin 7.3 today. Repeat that in morning Review of systems: Positive for right hip pain. All other systems were reviewed and are negative. - Constitutional Vitals: Vital Signs Temp Pulse Resp BP Pulse Ox 98.9 F 67 16 132/61 100 07/18/19 07:31 07/18/19 07:31 07/18/19 07:31 07/18/19 07:31 07/18/19 07:31 Period Temp Pulse Resp BP Sys/Alvarez Pulse Ox Last 24 Hr 97.7 F-98.9 F 65-94 10-20 107-137/34-92 91-100 Intake and Output 07/17/19 07/18/19 07/18/19 21:59 05:59 13:59 Intake Total 150 500 Output Total 800 Balance 150 -300 Weight 80.921 kg Intake & Output: Intake & Output 07/17/19 07/18/19 07/18/19 21:59 05:59 13:59 Intake Total 150 500 Output Total 800 Balance 150 -300 Weight 80.921 kg Intake: IV 150 OFIRMEV 1,000 mg In 100 ml @ 0 100 mls/hr IV .STK-MED ONE Rx#: [id number] Ancef 2 gm In Dextrose 5% in 50 Water 50 ml @ 100 mls/hr IV PREOP SONU Rx#:[id number] Oral 500 Output: Void Amount 800 Other: Urine Appearance Clear Urine Color Dark Yellow Urine Odor Normal - Additional findings Additional findings: General - No acute distress Eyes - PERRLA, EOM intact ENT no rhinorrhea, no noticeable or palpable swelling, no redness or rash around throat or on face Neck supple, no JVD, no thyromegaly Respiratory: Lungs -clear, no wheezing or crackles. Cardiovascular - RRR no r/g, mild systolic murmur over precardial area. GI - Normal bowel sounds, no distended, soft. Extremeties - No edema, cyanosis or clubbing. Moderate tenderness over the right hip area. Dressing dry Hemo/lymphatic/immune no lymphadenopathy Neurological Alert and oriented x 3, no focal neurological deficits. No numbness in both legs Psychiatry flat affect Medical - PN: Obj Da - Labs CBC & Chem 7: 07/18/19 05:09 07/18/19 05:09 Labs: Abnormal Lab Results 07/18/19 07/18/19 07/17/19 05:09 05:09 14:20 WBC 3.7 L RBC 1.90 L Hgb 7.3 L Hct 21.4 L MCV 112.6 H MCH 38.4 H MCHC RDW 16.1 H MPV 12.0 H Gran % 85.5 H Lymph % (Auto) 9.7 L Gran # Lymph # (Auto) 0.36 L PT 15.4 H INR 1.2 H Glucose 191 H Calcium 8.2 L Phosphorus 4.6 H Total Bilirubin NT-Pro-B Natriuret Pep 1130.0 H 07/17/19 07/17/19 14:20 14:20 WBC 12.5 H RBC 2.13 L Hgb 8.6 L Hct 23.6 L MCV 110.8 H MCH 40.4 H MCHC 36.4 H RDW 15.5 H MPV 12.0 H Gran % 89.8 H Lymph % (Auto) 5.6 L Gran # 11.23 H Lymph # (Auto) 0.70 L PT INR Glucose 124 H Calcium Phosphorus Total Bilirubin 1.5 H NT-Pro-B Natriuret Pep Meds: Medications Dextrose (Dextrose 50%) 0 ml IV UD PRN PRN Reason: Hypoglycemia Diagnostic Test (Pha) (Accu-Chek) 1 each FS [facility] Last Admin: 07/18/19 07:41 Dose: 1 each Documented by: Docusate Sodium (Colace) 100 mg PO BID [facility] Last Admin: 07/18/19 07:48 Dose: 100 mg Documented by: Glucose (Insta-Glucose) 15 gm PO PRN PRN PRN Reason: Hypoglycemia Hydromorphone HCl (Dilaudid) 0.5 mg IV Q4HP PRN; Protocol PRN Reason: Per Pain Protocol Sodium Chloride (Sodium Chloride 0.9%) 1,000 mls @ 75 mls/hr IV .[id number] [facility] Last Admin: 07/17/19 22:23 Dose: 75 mls/hr Documented by: Insulin Human Lispro (Humalog) 0 unit SQ [facility]; Protocol Last Admin: 07/18/19 07:47 Dose: 1 unit Documented by: Levothyroxine Sodium (Synthroid) 50 mcg PO [facility] Last Admin: 07/18/19 07:48 Dose: 50 mcg Documented by: Ondansetron HCl (Zofran) 4 mg IV Q6HP PRN PRN Reason: Nausea And Vomiting Pantoprazole Sodium (Protonix) 40 mg PO [facility] Last Admin: 07/18/19 07:48 Dose: 40 mg Documented by: Prochlorperazine (Compazine) 5 mg IV Q4HP PRN PRN Reason: Nausea And Vomiting Senna (Senokot) 2 tab PO HS [facility] Last Admin: 07/17/19 22:16 Dose: 2 tab Documented by: Sodium Chloride (Saline Flush) 10 ml IV Q8 [facility] Last Admin: 07/18/19 05:25 Dose: Not Given Documented by: Tamsulosin HCl (Flomax) 0.4 mg PO QDAY [facility] Tramadol HCl (Ultram) 50 mg PO Q6HP PRN PRN Reason: Pain Last Admin: 07/18/19 07:48 Dose: 50 mg Documented by: Medical - PN: A/P - Time Spent With Patient Total time spent is greater than 50% in coordination of care (as documented) at patient's floor/unit and/or counseling patient: - Narrative A/P Narrative: Assessment: 1. Subcapital fracture in the right femoral neck 2. Aortic stenosis 3. Hypothyoidism 4. Orthostatic hypotension 5. Near syncope 6. 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 Leukocytosis 8. Mechanical fall Plan: 1. Status post percutaneous screw fixation of right femoral neck fracture by Dr. Becker on 07/17/19 Post op management including pain control and DVT prophylaxis by Orth team pain management including iv dilaudid 2. Control BP. traffic monitor specialist BNP 1130 Intake and output 3. continue home Synthroid 4. for History of orthostatic hypotension and near syncope, closely monitor his blood pressure. His blood pressure is stable now PT OT He may need assessment from a cardiology and neurology as an patient 5. Hemoglobin A1c 5.4 he is not on insulin Blood glucose is controlled Diabetic diet Insulin sliding scale 6. Since no focal positive neurological deficits or headache, I will not order a CT of her head at this moment Monitor 7. DVT prophylaxis: Lovenox 8. CODE STATUS: Full Medical - PN: Qual - VTE Deep Vein Thrombosis/Pulmonary Embolism Present on Admission: No
[2019-07-18] MEDS ORDERED: ENOXAPARIN 40 MG/0.4 ML SYRINGE SQ SCH (09:00)
[2019-07-18] MEDS ORDERED: LEVOTHYROXINE SODIUM 50 MCG PO SCH (09:00)
[2019-07-18] MEDS ORDERED: TAMSULOSIN 0.4 MG CAPSULE PO SCH ×2 (09:00)
--- NOTE | 2019-07-18 09:13 | XRay Report ---
HISTORY: FINDINGS: IMPRESSION: 0.5 minutes of fluoroscopy time was used. Interpreted and Authenticated by: He Pantoja 07/18/19
--- NOTE | 2019-07-18 10:28 | Orthopedic Progress Note ---
Orthopedics - Auxillary Note - Subjective Patient Information: Note initiated : 07/18/19 at 10:25 am Service Date, if different from initiated Date: [] Patient: Sundeep Quispe 83 y/o M admitted on 07/17/19 for fall. Chief Complaint: no c/o. Pt reports doing well and ready for discharge to home. bandages c/d/i. NVI-distal Vital Signs Temp Pulse Pulse Resp BP BP Pulse Ox 07/18/19 07:31 98.9 F 67 16 132/61 100 07/18/19 03:59 98.0 F 67 16 122/61 98 07/18/19 02:30 98.5 F 72 16 111/65 97 07/18/19 02:00 98.5 F 75 18 109/60 96 07/18/19 01:30 98.6 F 77 18 115/62 98 07/18/19 01:00 98.6 F 78 18 109/60 96 07/18/19 00:30 98.5 F 73 18 108/67 100 07/18/19 00:00 98.3 F 78 16 108/62 94 07/17/19 23:55 98.4 F 75 18 117/63 100 07/17/19 23:40 98.5 F 76 18 113/61 100 07/17/19 23:25 98.3 F 77 18 112/60 100 07/17/19 23:10 98.5 F 80 18 108/60 100 07/17/19 22:55 98.3 F 77 16 122/64 100 07/17/19 22:40 98.6 F 80 16 117/64 100 07/17/19 22:25 98.5 F 76 18 123/64 100 07/17/19 22:10 98.5 F 73 16 120/68 97 07/17/19 21:55 98.6 F 66 16 113/68 95 07/17/19 21:40 98.5 F 74 18 121/72 99 07/17/19 21:25 98.4 F 66 18 123/62 99 07/17/19 21:10 98.5 F 65 18 117/64 99 07/17/19 20:55 98.6 F 66 16 127/60 99 07/17/19 20:40 98.6 F 69 16 124/63 100 05/08/20 20:35 98.9 F 79 14 128/50 98 07/17/19 20:25 80 18 136/47 97 07/17/19 20:20 76 12 137/53 100 07/17/19 20:15 75 12 129/52 100 07/17/19 20:10 74 10 L 124/53 100 07/17/19 20:09 98.8 F 75 10 L 116/47 99 07/17/19 19:07 97.7 F 79 20 136/34 98 07/17/19 19:04 79 98 07/17/19 19:02 136/34 07/17/19 18:31 80 120/50 100 07/17/19 18:29 81 99 07/17/19 18:05 80 119/57 96 07/17/19 18:01 80 119/57 98 07/17/19 17:31 77 124/53 96 07/17/19 17:20 76 124/53 98 07/17/19 17:01 83 124/53 91 07/17/19 16:42 80 127/54 100 07/17/19 16:02 80 122/51 95 07/17/19 16:01 81 122/51 96 07/17/19 15:44 81 121/51 100 07/17/19 15:31 83 121/51 98 07/17/19 15:01 84 130/53 99 07/17/19 14:42 94 H 113/57 99 07/17/19 14:41 123/56 07/17/19 14:39 81 128/70 100 07/17/19 14:06 83 130/60 100 07/17/19 14:05 81 133/58 100 07/17/19 14:04 82 132/60 100 07/17/19 14:03 81 136/55 100 07/17/19 14:02 81 136/57 99 07/17/19 14:01 81 137/60 100 07/17/19 13:46 97.7 F 65 20 107/92 100 Intake and Output 07/17/19 07/18/19 07/18/19 21:59 05:59 13:59 Intake Total 150 500 Output Total 800 Balance 150 -300 Intake: IV 150 OFIRMEV 1,000 mg In 100 ml @ 0 100 mls/hr IV .STK-MED ONE Rx#: [id number] Ancef 2 gm In Dextrose 5% in 50 Water 50 ml @ 100 mls/hr IV PREOP [facility] Rx#:[id number] Oral 500 Output: Void Amount 800 Other: Urine Appearance Clear Urine Color Dark Yellow Urine Odor Normal Weight 178 lb 6.4 oz Laboratory Results - last 24 hr 07/17/19 07/17/19 07/17/19 14:20 14:20 14:20 WBC 12.5 H RBC 2.13 L Hgb 8.6 L Hct 23.6 L MCV 110.8 H MCH 40.4 H MCHC 36.4 H RDW 15.5 H Plt Count 225 MPV 12.0 H Gran % 89.8 H Lymph % (Auto) 5.6 L [place] % (Auto) 4.4 Eos % (Auto) 0 Baso % (Auto) 0.2 Gran # 11.23 H Lymph # (Auto) 0.70 L [place] # (Auto) 0.55 Eos # (Auto) 0 Baso # (Auto) 0.02 PT 15.4 H INR 1.2 H Sodium 136 Potassium 3.8 Chloride 102 Carbon Dioxide 23 Anion Gap 11.0 BUN 23 Creatinine 0.9 GFR Calculation 78 Glucose 124 H Hemoglobin A1c Estim Average Glucose Calcium 9.5 Phosphorus Magnesium Total Bilirubin 1.5 H AST 29 ALT 25 Alkaline Phosphatase 56 Troponin T NT-Pro-B Natriuret Pep Total Protein 7.0 Albumin 4.7 Globulin 2.3 Albumin/Globulin Ratio 2.0 07/17/19 07/17/19 07/18/19 14:20 14:20 05:09 WBC 3.7 L RBC 1.90 L Hgb 7.3 L Hct 21.4 L MCV 112.6 H MCH 38.4 H MCHC 34.1 RDW 16.1 H Plt Count 170 MPV 12.0 H Gran % 85.5 H Lymph % (Auto) 9.7 L [place] % (Auto) 4.8 Eos % (Auto) 0 Baso % (Auto) 0 Gran # 3.19 Lymph # (Auto) 0.36 L [place] # (Auto) 0.18 Eos # (Auto) 0 Baso # (Auto) 0 PT INR Sodium Potassium Chloride Carbon Dioxide Anion Gap BUN Creatinine GFR Calculation Glucose Hemoglobin A1c 5.4 Estim Average Glucose 108 Calcium Phosphorus Magnesium Total Bilirubin AST ALT Alkaline Phosphatase Troponin T < 0.01 NT-Pro-B Natriuret Pep Total Protein Albumin Globulin Albumin/Globulin Ratio 07/18/19 05:09 WBC RBC Hgb Hct MCV MCH MCHC RDW Plt Count MPV Gran % Lymph % (Auto) [place] % (Auto) Eos % (Auto) Baso % (Auto) Gran # Lymph # (Auto) [place] # (Auto) Eos # (Auto) Baso # (Auto) PT INR Sodium 135 Potassium 4.3 Chloride 100 Carbon Dioxide 23 Anion Gap 12.0 BUN 22 Creatinine 0.9 GFR Calculation 78 Glucose 191 H Hemoglobin A1c Estim Average Glucose Calcium 8.2 L Phosphorus 4.6 H Magnesium 2.2 Total Bilirubin 0.9 AST 18 ALT 20 Alkaline Phosphatase 50 Troponin T NT-Pro-B Natriuret Pep 1130.0 H Total Protein 6.1 Albumin 3.9 Globulin 2.2 Albumin/Globulin Ratio 1.8 s/p R hip percutaneous pinning for femoral neck fx-stable Pt ready for dischrage from ortho standpoint -out-pt PT -cont lovenox for DVT prophylaxis -weight-bear as tolerated -f/u 2 weeks at [facility] for staple removal -rx for pain meds
[2019-07-18] MEDS ORDERED: 0.9 % SODIUM CHLORIDE 250 ML IV SCH (16:00)
[2019-07-18] MEDS ORDERED: FUROSEMIDE 20 MG/2 ML VIAL IV ONE ×2 (17:49→19:48)
--- NOTE | 2019-07-18 19:42 | Discharge Summary ---
Medical - DS: Prov Patient information: Note initiated : 07/18/19 at 7:40 pm Service Date, if different from initiated Date: [] Patient: Sundeep Quispe 83 y/o M admitted on 07/17/19 for fall. Chief Complaint: [] Refer to H&P by Jeancarlos Brown M.D.> 07/17/19 Mr. Quispe is a 83 year old M with a past medical history of aortic stenosis, hypothyroidism, orthostatic hypotension, near syncope, and diabetes who was brought to the ER due to 1 episode of fall and right hip pain. As per patient, he felt dizzy and fell in the early this morning when he he abruptly stood up in a clinic. He was told by the staff at clinic "blood pressure dropped too fast". He denies loss of consciousness and injury to his head. In the ER, Xray showed subcapital fracture in the right femoral neck. Orth Dr. Becker was consulted, who will probably give pt a procedural intervention. When I saw this patient in the ER, other than the symptoms mentioned above, he denied headache, dizziness, chest pain, shortness of breath, abdominal pain, nausea, vomiting, or dysuria. No tingling or numbness of legs. No urinary or bowel incontinence. No recent travel or sick contact. Date of admission: 07/17/19 20:40 Discharge date: 07/18/19 Primary care physician: Katie Elliott Consults: 07/17/19 Consult to Physician [CONS] Stat Comment: Consulting Provider: Gold Becker Reason For Exam: Physician to Consult 07/17/19 16:51 Consult to Physician [CONS] Stat Comment: Consulting Provider: Jeancarlos Brown Reason For Exam: Physician to Consult Medical - DS: Meds - Discharge Medications Bad tableActive and Home Medications: Home Medications Magnesium 400 mg PO QDAY 04/04/16 [History Confirmed 07/17/19 Last Taken 01/20/17 08:00] Vitamin B Complex 1 cap PO DAILY 12/19/16 [History Confirmed 07/17/19 Last Taken 01/20/17 08:00] cholecalciferol (vitamin D3) 25 mcg (1,000 unit) tablet 5,000 unit PO DAILY tab 12/11/18 [History Confirmed 07/17/19 Last Taken Unknown] levothyroxine 75 mcg capsule 50 mcg PO QDAY 12/29/18 [History Confirmed 07/17/19 Last Taken Unknown] omeprazole 40 mg capsule,delayed release 40 mg PO QDAY #90 cap 01/13/19 [Rx Confirmed 07/17/19 Last Taken Unknown] blood sugar diagnostic See Rx Instructions .ROUTE .MEDSUPPLY #10 each 05/06/19 [History Confirmed 07/17/19 Last Taken Unknown] blood-glucose meter, drum-type See Rx Instructions .ROUTE .MEDSUPPLY #1 each 05/06/19 [History Confirmed 07/17/19 Last Taken Unknown] lancets See Rx Instructions .ROUTE .MEDSUPPLY #50 each 05/06/19 [History Confirmed 07/17/19 Last Taken Unknown] tamsulosin 0.4 mg capsule 0.4 mg PO QDAY 05/07/19 [History Confirmed 07/17/19 Last Taken Unknown] trazodone 50 mg tablet 50 - 100 mg PO QHS #180 tab 05/29/19 [Rx Confirmed Last Taken Unknown] Ascorbic Acid [Vitamin C] 1,000 mg PO DAILY 07/17/19 [History Confirmed 07/17/19 Last Taken Unknown] Multivitamin/Iron/Folic Acid [Centrum Adults Tablet] 1 each PO DAILY 07/17/19 [History Confirmed 07/17/19 Last Taken Unknown] Vitamin K2 180 mcg PO TID 07/17/19 [History Confirmed 07/17/19 Last Taken Unknown] HYDROcodone/ACETAMINOPHEN [Hydrocodone-Acetamin 10-325 mg] 1 - 2 each PO Q6 #50 tab 07/18/19 [Rx Last Taken Unknown] Medical - DS: Hosp Hospital Course: Mr. Quispe is a 83 year old M with a past medical history of aortic stenosis, hypothyroidism, orthostatic hypotension, near syncope, and diabetes who was brought to the ER due to 1 episode of fall and right hip pain. As per patient, he felt dizzy and fell in the early this morning when he he abruptly stood up in a clinic. He was told by the staff at clinic "blood pressure dropped too fast". He denies loss of consciousness and injury to his head. In the ER, Xray showed subcapital fracture in the right femoral neck. Orth Dr. Becker was consulted, who will probably give pt a procedural intervention. When I saw this patient in the ER, other than the symptoms mentioned above, he denied headache, dizziness, chest pain, shortness of breath, abdominal pain, nausea, vomiting, or dysuria. No tingling or numbness of legs. No urinary or bowel incontinence. No recent travel or sick contact. 1. Subcapital fracture in the right femoral neck Status post percutaneous screw fixation of right femoral neck fracture by Dr. Becker on 07/17/19 Post op management including pain control and DVT prophylaxis by Orth team Jairo Claire PA-C cleared to discharge the pt to home today. -out-pt PT -cont lovenox for DVT prophylaxis -weight-bear as tolerated -f/u 2 weeks at [facility] for staple removal -rx for pain meds 2. Aortic stenosis f/u with pcp 3. Hypothyoidism continue home Synthroid 4. Orthostatic hypotension for History of orthostatic hypotension and near syncope, pt's BP is fine and stable. He does not have dizziness, n/v. PT OT He may need assessment from a cardiology and neurology as an patient 5. Near syncope 6. 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 Leukocytosis wbc 3.7 today. 8. Mechanical fall no focal positive neurological deficits or headache, I did not order CT of head at this moment Closely monitor f/u with pcp 07/17 He underwent Percutaneous screw fixation of right femoral neck fracture by Dr. Becker on 07/17/19 Pt feels very fine. Pain is controlled. But he told me that he did not sleep well last night because he did not have his sleeping pill last night. Otherwise that he does not have any complaints. Vital signs are stable. Hemoglobin 7.3 today. Repeat that in morning update: Pt really wants to go home and does not want to stay even one more night. Hb 7.3 today. He told me that he has been having chronic anemia. But I feel 7.3 is too low for him to go home. So I gave him one unit of pRBC. Lasix 20mg iv x 1 was given after transfusion. Orth recommended Lovenox for DVT prophylaxis. I educated him the risk for bleeding from use of Lovenox. stop Lovenox and go to ER immediately or call pcp whenever bleeding occurs. Now he denies headache, dizziness, chest pain, shortness of breath, abdominal pain, nausea or vomiting. He will be discharged home to follow with PCP in 3 days and orth in 2 weeks at [facility]. outpt PT was ordered. weight-bear as tolerated. He needs to repeat CBC and electrolytes in 3 daysCall PCP for medical issues. Discharge diagnosis: Subcapital fracture in the right femoral neck - Time Spent with Patient Total time spent providing and/or coordinating discharge services: Greater than 30 minutes Medical - DS: Exam - Constitutional Vitals: Vital Signs Temp Pulse Resp BP Pulse Ox 07/18/19 16:00 98.4 F 16 134/68 96 07/18/19 12:00 97.4 F 14 128/70 99 07/18/19 07:31 98.9 F 67 16 132/61 100 07/18/19 03:59 98.0 F 67 16 122/61 98 07/18/19 02:30 98.5 F 72 16 111/65 97 07/18/19 02:00 98.5 F 75 18 109/60 96 07/18/19 01:30 98.6 F 77 18 115/62 98 07/18/19 01:00 98.6 F 78 18 109/60 96 07/18/19 00:30 98.5 F 73 18 108/67 100 07/18/19 00:00 98.3 F 78 16 108/62 94 07/17/19 23:55 98.4 F 75 18 117/63 100 07/17/19 23:40 98.5 F 76 18 113/61 100 07/17/19 23:25 98.3 F 77 18 112/60 100 07/17/19 23:10 98.5 F 80 18 108/60 100 07/17/19 22:55 98.3 F 77 16 122/64 100 07/17/19 22:40 98.6 F 80 16 117/64 100 07/17/19 22:25 98.5 F 76 18 123/64 100 07/17/19 22:10 98.5 F 73 16 120/68 97 07/17/19 21:55 98.6 F 66 16 113/68 95 07/17/19 21:40 98.5 F 74 18 121/72 99 07/17/19 21:25 98.4 F 66 18 123/62 99 07/17/19 21:10 98.5 F 65 18 117/64 99 07/17/19 20:55 98.6 F 66 16 127/60 99 07/17/19 20:40 98.6 F 69 16 124/63 100 07/17/19 20:35 98.9 F 79 14 128/50 98 07/17/19 20:25 80 18 136/47 97 07/17/19 20:20 76 12 137/53 100 07/17/19 20:15 75 12 129/52 100 07/17/19 20:10 74 10 L 124/53 100 07/17/19 20:09 98.8 F 75 10 L 116/47 99 Intake and Output 07/18/19 07/18/19 07/18/19 05:59 13:59 21:59 Intake Total 500 944 750 Output Total 800 Balance -300 944 750 Intake: IV 944 Sodium Chloride 0.9% 1,000 ml @ 944 75 mls/hr IV .[id number] [facility] Rx#: [id number] Oral 500 750 Output: Void Amount 800 Other: Meal Dinner Percent of Meal Consumed 100% Urine Appearance Clear Urine Color Dark Yellow Urine Odor Normal - Other Additional findings: General - No acute distress Eyes - PERRLA, EOM intact ENT no rhinorrhea, no noticeable or palpable swelling, no redness or rash around throat or on face Neck supple, no JVD, no thyromegaly Respiratory: Lungs -clear, no wheezing or crackles. Cardiovascular - RRR no r/g, mild systolic murmur over precardial area. GI - Normal bowel sounds, no distended, soft. Extremeties - No edema, cyanosis or clubbing. Moderate tenderness over the right hip area. Dressing dry Hemo/lymphatic/immune no lymphadenopathy Neurological Alert and oriented x 3, no focal neurological deficits. No numb ness in both legs Psychiatry flat affect Medical - DS: Data Labs on day of discharge: Labs from last 24 hours 07/18/19 07/18/19 05:09 05:09 WBC 3.7 L RBC 1.90 L Hgb 7.3 L Hct 21.4 L MCV 112.6 H MCH 38.4 H MCHC 34.1 RDW 16.1 H Plt Count 170 MPV 12.0 H Gran % 85.5 H Lymph % (Auto) 9.7 L [place] % (Auto) 4.8 Eos % (Auto) 0 Baso % (Auto) 0 Gran # 3.19 Lymph # (Auto) 0.36 L [place] # (Auto) 0.18 Eos # (Auto) 0 Baso # (Auto) 0 Sodium 135 Potassium 4.3 Chloride 100 Carbon Dioxide 23 Anion Gap 12.0 BUN 22 Creatinine 0.9 GFR Calculation 78 Glucose 191 H Calcium 8.2 L Phosphorus 4.6 H Magnesium 2.2 Total Bilirubin 0.9 AST 18 ALT 20 Alkaline Phosphatase 50 NT-Pro-B Natriuret Pep 1130.0 H Total Protein 6.1 Albumin 3.9 Globulin 2.2 Albumin/Globulin Ratio 1.8 Medical - DS: A/P - Patient/Caregiver Discharge Instructions Activity: increase activity as tolerated Diet: Consistent Carbohydrate Additional Instructions: Discharge Instructions: Do the exercises at home that physical therapy gave you. Weight bearing as tolerated. Take your prescription, photo ID, insurance cards, and current medication list with you to your first physical therapy appointment. Wear comfortable clothing for your physical therapy. Take your prescription to pickling drum operator any medication or equipment (such as walker, crutches, toilet riser or C.P.M.) If you have the Aquacel Ag dressing, leave in place for 7 days then remove. If dressing becomes soiled (turns black), remove and use gauze 4x4 dressing and antimicrobial silver ointment ([id number]) and change daily. You may shower with dressing on, pat dry after shower. To avoid constipation while taking any narcotic pain medication, take an over the counter stool softener/laxative. Use ice packs as directed, on for 20 minutes at a time, throughout the day. If you have any questions or concerns call your orthopedic surgeon before going to the emergency room. [facility] has a monorail operator physician 24 hours per day/7 days per week and can be reached at [phone]. Call for fevers above 100.5 or pain not controlled by medication. Your prescriptions are with your discharge information. Take Aspirin as prescribed to prevent blood clots (see medication list). Bad tableOther Amb Orders: Physical Therapy at Discharge - General Location: None Selected Walker Location: None Selected - Follow up Plan Follow up with: Nic Claire PA-C [Physician Building Operator] - (Call [facility] on Saturday to schedule follow up for 2 weeks for staple removal) Gold Becker MD [Physician] - (in 2 weeks) Katie Elliott ARNP [Primary Care Provider] - (in 3 days) Disposition: Home, Self-Care Prognosis: Fair Rehab Potential: Fair Medical - DS: Qual - VTE Deep Vein Thrombosis/Pulmonary Embolism Present on Admission: No
--- NOTE | 2019-07-20 09:09 | Operative Note ---
DATE OF OPERATION: 07/17/2019 PREOPERATIVE DIAGNOSIS: Right nondisplaced femoral neck fracture. POSTOPERATIVE DIAGNOSIS: Right nondisplaced femoral neck fracture. PROCEDURE PERFORMED: Percutaneous screw fixation of the right nondisplaced femoral neck fracture. SURGEON: Gold Becker M.D. REEL SYSTEM OPERATOR: Onesimo Claire PA-C. The PA's assistance was required for the safe and efficient completion of the entire case. This provider's expertise and technical skill were required throughout the case. The PA assisted with preoperative coordination, intraoperative retraction, wound closure, dressing and splint application, as well as postoperative documentation and care coordination. ANESTHESIA: General. DRAINS: None. SPECIMENS: None. COMPLICATIONS: None. BLOOD LOSS: 5 mL. POSTOPERATIVE CONDITION: Stable. INDICATIONS FOR SURGERY: This is an 83-year-old who fell, injuring his right hip. He is having pain with weightbearing. X-rays and CT were done in the ER which showed a nondisplaced femoral neck fracture. FINDINGS AT SURGERY: Nondisplaced femoral neck fracture. Post screw fixation showed screws in good position. PROCEDURE IN DETAIL: The patient had been seen preoperatively. Informed consent had been obtained after discussion of risks and benefits of surgery. Risks including, but not limited to, bleeding; infection; injury to nerves, blood vessels, other surrounding structures; anesthetic risks; nonunion or malunion of fracture; failure of hardware fixation; possibility of development of avascular necrosis; ____ ____ hip arthroplasty. He understood the risks of procedure. Operative site was marked in preoperative holding and patient was taken to the operating room. General anesthesia was induced. The patient was carefully positioned on the fracture table with gentle traction and internal rotation on the right lower extremity. The left one was flexed and abducted and carefully padded. Right hip and leg were then carefully prepped and draped in normal sterile fashion, and a timeout was performed verifying patient, operative site, and plan. Ioban drape was placed and then fluoroscopy was brought in and a proximate entry point was made with a scalpel with incision laterally and then spread down to bone with a tonsil clamp, and then a guide pin was used under fluoroscopic guidance, starting with careful attention to be above the level of the lower edge of the lesser trochanter. This was passed along the inferior femoral neck up into the femoral head. Fluoro was checked with the lateral view, and it was centered on the lateral view. A drill guide was used to pass a guide pin proximal posterior and proximal anterior. We checked fluoro, verifying position in both views, and once we liked all three screw positions depth gauge was used, and appropriate length 6.5 cannulated partial-threaded screws were placed. Once all three screws were placed, we verified with fluoro. There was no penetration of the articular surface. Fracture was anatomically aligned. Those images were saved and printed. We irrigated with saline and then 2-0 Monocryl was used for subcutaneous and tran for skin. Xeroform and sterile dressing were applied. The patient was then awakened, extubated, and transferred to recovery in stable condition. BJB:carrington Job ID: [id number] Doc ID: [id number] Gold Becker MD
== END 2019-07-18 20:01 | disposition home or self-care (01) | DRG 481 ==
LOC: ED 13:45 → SUR 19:10 → MEDSUR 20:40
PROVIDERS: ADMIT Orthopaedic Surgery; ATTEND Internal Medicine

== ENCOUNTER 2021-04-28 05:56 | Inpatient (IN) ==
[2021-04-25 14:56] LABS: Basophils # (Auto) 0.01 K/mcL (0.00-0.30); Basophils % (Auto) 0.3 % (0.0-2.0); Eosinophils # (Auto) 0.02 K/mcL (0.00-0.70); Eosinophils % (Auto) 0.5 % (0.0-7.0); Hematocrit 24.5 % (40.1-51.0); Hemoglobin 8.4 g/dL (13.7-17.5); Lymphocytes # (Auto) 0.36 K/mcL (1.50-4.80); Lymphocytes % (Auto) 9.8 % (15.5-49.0); Mean Cell Volume 98.4 fL (80.0-100.0); Mean Corpuscular HGB Conc 34.3 g/dL (31.0-36.0); Monocytes # (Auto) 0.06 K/mcL (0.10-0.90); Monocytes % (Auto) 1.6 % (1.0-12.0); Neutrophils % (Auto) 87.8 % (38.0-78.0); Platelet Count 242 K/mcL (140-440); RBC 2.49 M/mcL (4.63-6.08); Red Cell Distribution Width 20.5 % (11.5-14.5); WBC 3.7 K/mcL (4.5-11.0)
[2021-04-25 15:36] LABS: INR 1.2 (0.9-1.1); Partial Thromboplastin Time 41.6 sec (20.0-37.0); Prothrombin Time 16.1 sec (11.9-14.5)
[2021-04-25 17:03] LABS: ALT/SGPT 22 U/L (<40); AST/SGOT 23 U/L (<40); Albumin 4.2 gm/dL (3.2-5.2); Albumin/Globulin Ratio 1.6 (1.0-2.3); Alkaline Phosphatase 121 U/L (39-117); Bilirubin,Total 0.8 mg/dL (0.1-1.0); Blood Urea Nitrogen 13 mg/dL (8-23); Calcium 8.7 mg/dL (8.6-10.4); Carbon Dioxide 22 mmol/L (22-30); Chloride 99 mmol/L (96-108); Globulin 2.7 gm/dL (2.2-3.7); Glomerular Filtration Rate 77; Glucose 245 mg/dL (70-105)
[2021-04-28] MEDS ORDERED: 0.9 % SODIUM CHLORIDE 250 ML IV SCH (06:00)
[2021-04-28] MEDS ORDERED: ceFAZolin 2 GM in DEXTROSE 5% IN WATER 50 ML IV SCH (06:00)
[2021-04-28 06:25] LABS: POC Calcium, Ionized 1.23 mmEq/L (1.16-1.32); POC Creatinine 0.8 mg/dL (0.6-1.2); POC Potassium 3.8 mEql/L (3.3-5.1)
[2021-04-28 07:04] LABS: INR 1.2 (0.9-1.1); Prothrombin Time 15.4 sec (11.9-14.5)
[2021-04-28] MEDS ORDERED: DEXAMETHASONE 10 MG/ML VIAL ONE (07:23)
[2021-04-28] MEDS ORDERED: ONDANSETRON 4 MG/2 ML VIAL ONE (07:23)
[2021-04-28] MEDS ORDERED: LIDOCAINE HCL/PF 100 MG/5 ML SYRINGE IV ONE (07:23)
[2021-04-28] MEDS ORDERED: fentaNYL 100 MCG/2 ML VIAL IV ONE (07:23)
[2021-04-28] MEDS ORDERED: SUGAMMADEX SODIUM 200 MG/2 ML VIAL IV ONE (07:23)
[2021-04-28] MEDS ORDERED: KETAMINE 50 MG/ML Syringe (ANEST) IV ONE (07:23)
[2021-04-28] MEDS ORDERED: ROCURONIUM 10 MG/ML ML IV ONE (07:23)
[2021-04-28] MEDS ORDERED: PROPOFOL 200 MG/20 ML VIAL IV ONE (07:23)
[2021-04-28] MEDS ORDERED: GLYCOPYRROLATE 0.2 MG/ML VIAL IV ONE (07:23)
[2021-04-28] MEDS ORDERED: MAGNESIUM SULFATE 2 GM/50 ML BAG IV ONE (07:23)
[2021-04-28] MEDS ORDERED: ACETAMINOPHEN 1,000 MG/100 ML BAG IV ONE (08:25)
[2021-04-28] MEDS ORDERED: BENZOCAINE/MENTHOL 1 LOZENGE PO PRN (08:25)
[2021-04-28] MEDS ORDERED: IPRATROPIUM/ALBUTEROL 3 ML AMPUL.NEB NEB PRN (08:25)
[2021-04-28] MEDS ORDERED: MEPERIDINE 25 MG/ML VIAL IV PRN (08:25)
[2021-04-28] MEDS ORDERED: ONDANSETRON 4 MG/2 ML VIAL IV PRN (08:25)
[2021-04-28] MEDS ORDERED: fentaNYL 100 MCG/2 ML VIAL IV PRN (08:25)
--- NOTE | 2021-04-28 08:41 | Brief Operative Note ---
Brief Operative Note Date of procedure: 04/28/21 Pre-op diagnosis: cholelithiasis with cholecystitis Post-op diagnosis: other (cholelithiasis with cholecystitis) Procedure: laparoscopic cholecystectomy Grafts/Implants: No (omid drain #10 x1) Anesthesia: GETA Findings: edematous gall bladder with stones and sludge Complications: none Surgeon: Tej Elliott Estimated blood loss (cc): 20 Specimens Removed/Pathology: other (gallbladder) Condition: stable Disposition: PACU
[2021-04-28] MEDS: oxyCODONE HCL 5 MG TABLET PO PRN ×2 (09:58→19:35)
[2021-04-28] MEDS: LEVOFLOXACIN 750 MG/150 ML BAG IV SCH (10:16)
[2021-04-28] MEDS: HYDROmorphone 1 MG/ML SYRINGE IV PRN (10:22)
[2021-04-28] MEDS: LACTATED RINGERS 1,000 ML IV SCH (12:31)
[2021-04-28] MEDS: 0.9 % SODIUM CHLORIDE 10 ML SYRINGE IV SCH ×2 (13:14→20:24)
[2021-04-29] MEDS: LACTATED RINGERS 1,000 ML IV SCH ×2 (01:56→18:39)
[2021-04-29] MEDS: oxyCODONE HCL 5 MG TABLET PO PRN ×4 (03:15→22:16)
[2021-04-29] MEDS: 0.9 % SODIUM CHLORIDE 10 ML SYRINGE IV SCH ×3 (04:49→21:04)
[2021-04-29 06:27] LABS: Basophils # (Auto) 0.01 K/mcL (0.00-0.30); Basophils % (Auto) 0.2 % (0.0-2.0); Eosinophils # (Auto) 0.01 K/mcL (0.00-0.70); Eosinophils % (Auto) 0.2 % (0.0-7.0); Hematocrit 23.1 % (40.1-51.0); Hemoglobin 7.8 g/dL (13.7-17.5); Lymphocytes # (Auto) 1.23 K/mcL (1.50-4.80); Lymphocytes % (Auto) 29.5 % (15.5-49.0); Mean Cell Volume 97.9 fL (80.0-100.0); Mean Corpuscular HGB Conc 33.8 g/dL (31.0-36.0); Mean Platelet Volume 12.8 fL (7.4-10.4); Monocytes # (Auto) 0.34 K/mcL (0.10-0.90); Monocytes % (Auto) 8.2 % (1.0-12.0); Neutrophils % (Auto) 61.9 % (38.0-78.0); Platelet Count 245 K/mcL (140-440); RBC 2.36 M/mcL (4.63-6.08); Red Cell Distribution Width 20.4 % (11.5-14.5); WBC 4.2 K/mcL (4.5-11.0)
[2021-04-29 06:58] LABS: ALT/SGPT 29 U/L (<40); AST/SGOT 26 U/L (<40); Albumin 3.6 gm/dL (3.2-5.2); Albumin/Globulin Ratio 1.6 (1.0-2.3); Alkaline Phosphatase 97 U/L (39-117); Bilirubin,Direct 0.3 mg/dL (<0.3); Bilirubin,Total 0.8 mg/dL (0.1-1.0); Blood Urea Nitrogen 10 mg/dL (8-23); Calcium 8.4 mg/dL (8.6-10.4); Carbon Dioxide 25 mmol/L (22-30); Chloride 101 mmol/L (96-108); Globulin 2.3 gm/dL (2.2-3.7); Glomerular Filtration Rate 85; Glucose 122 mg/dL (70-105); Lactate Dehydrogenase 198 U/L (135-225); Phosphorous 3.4 mg/dL (2.5-4.5); Triglycerides 55 mg/dL (<150); Uric Acid 4.1 mg/dL (2.5-8.0)
[2021-04-29] MEDS: LEVOFLOXACIN 750 MG/150 ML BAG IV SCH (08:12)
--- NOTE | 2021-04-29 12:17 | Discharge Summary ---
Discharge Provider Provider Patient information: Note initiated : 04/29/21 at 12:11 pm Service Date, if different from initiated Date: [] Patient: Donte Quispe 85 y/o M admitted on for Laparoscopic Cholecystectomy No Grams. Chief Complaint: [] Date of admission: 04/28/2021 Discharge date: 04/29/21 Primary care physician: Katie Elliott Admitting clinician: Tej Elliott Attending physician on admission: Tej Elliott Attending physician on discharge: Tej Elliott Discharging clinician: Tej Elliott COURSE Hospital Course Hospital course: 85-year-old male with symptomatic cholelithiasis and cholecystitis. He is status post laparoscopic cholecystectomy on yesterday. He has done well except for persistent abdominal bloating.. He denies nausea. He has not had any flatus White blood count 4.2, hemoglobin of 7.8, hematocrit 23.1, liver panel normal. Patient is clinically stable and will be discharged later today Discharge diagnosis: Cholelithiasis with cholecystitis Secondary discharge diagnosis: Diabetes mellitus type 2 Chronic macrocytic anemia Reason for admission: Postoperative cholecystectomy Procedures: Laparoscopic cholecystectomy Complications: None Time Spent with Patient Time attestation: Total time spent providing and/or coordinating discharge services: Physical Examination Vital Signs Vital signs: Temp Pulse Resp BP Pulse Ox 98.5 F 72 15 138/57 99 04/29/21 11:54 04/29/21 11:54 04/29/21 11:54 04/29/21 11:54 04/29/21 11:54 Eyes Eye exam: PERRL and normal ocular movement ENT ENT exam: normal mucosa and no hearing loss Head Head exam IM: Present atraumatic, normal inspection and normocephalic Neck Neck exam: no masses, no bruits, trachea midline, no lymphadenopathy and no venous distension Cardiovascular Cardiovascular exam IM: Present normal rate and rhythm, RRR, +S1 and +S2; Absent JVD Respiratory Respiratory exam: normal expansion, normal respiratory effort and clear to auscultation Abdomen Abdomen: Present soft, bowel sounds (Good active bowel sounds) and distended (Mild abdominal distention) Integumentary Integumentary: Present no rash, no growths and no abnormal pigmentation Neurologic Neurologic: Present normal coordination, normal sensation and other Musculoskeletal Musculoskeletal: Present normal gait and normal posture Psychiatric Psychiatric: Present oriented to time, oriented to person, oriented to place, speech is normal, memory intact and other Discharge Plan Patient/Caregiver Discharge Instructions Activity: increase activity as tolerated Diet: Regular Diet and Low Fat Prescriptions: New hydrocodone-acetaminophen 10-325 mg Tablet 1 tab PO Q4H PRN (Reason: Pain) Qty: 30 0RF Continued tamsulosin 0.4 mg capsule 0.4 mg PO QDAY 0RF Hold Instructions: Doctor's Order omeprazole 40 mg capsule,delayed release(DR/EC) 40 mg PO BID 90 Days Qty: 180 4RF duloxetine 60 mg capsule,delayed release(DR/EC) 60 mg PO QDAY Qty: 90 2RF trazodone 50 mg tablet See Rx Instructions .ROUTE .COMPLEX Qty: 180 0RF Dose Instruction: TAKE 1 TO 2 TABLET BY MOUTH EVERY NIGHT AT BEDTIME Rx Instructions: TAKE 1 TO 2 TABLET BY MOUTH EVERY NIGHT AT BEDTIME magnesium 200 mg tablet 200 mg PO DAILY 0RF calcium carbonate-vitamin D3 [Calcium 600 + D(3)] 600 mg(1,500mg) -400 unit tablet 1 tab PO QDAY 0RF cinnamon bark [Cinnamon] 500 mg capsule 1,000 mg PO BID 0RF cholecalciferol (vitamin D3) 25 mcg (1,000 unit) tablet 2,000 unit PO DAILY 0RF vitamin K2 40 MCG tablet 40 mcg PO DAILY 0RF midodrine 5 mg tablet 10 mg PO TID 0RF Rx Instructions: do not give last dose of day after 6PM or within 4 hrs of bedtime DHEA 50 mg Tablet 50 mg PO QDAY 0RF [id number] mg Capsule 1 cap PO DAILY 0RF multivitamin Tablet 1 tab PO QAM 0RF hydrocortisone 0.25 % Lotion 1 ea TOPICAL QDAY 0RF clobetasol 0.05 % solution 1 applic topical QDAY 0RF Testosterone Support 1 tab PO QDAY 0RF levothyroxine 50 mcg tablet 50 mcg PO QDAY 0RF Discontinued hydrocodone-acetaminophen 10-325 mg tablet 1 tab PO .Q4-6H PRN (Reason: Pain) 0RF Follow Up Plan Follow up with: Tej Elliott MD [Physician] - 05/15/21 9:30 am Patient Disposition: Home, Self-Care Plan of Treatment: Use MiraLAX 2-3 times daily to prevent constipation May also use Colace daily Milk of magnesia 2 tablespoons every 4-6 hours as needed for severe constipation Prognosis: Good Rehab Potential: Good I certify that the patient requires SNF services: No Overall status at discharge: patient is progressing back to baseline Discharge Orders: Discharge Order (Routine); Ordered 05/04/21 Ordered By: Tej Elliott Pending Pending Pending: Resuscitation Status Resuscitate (Full Code) Diet Regular Diet Start Sat Apr 29 08 Hydromorphone HCl (Hydromorphone 1 Mg/Ml Syringe) 1 mg IV Q2HP PRN; Protocol PRN Reason: Per Pain Protocol Last Admin: 04/28/21 10:22 Dose: 1 mg Documented by: MALOU Lactated Ringer's (Lactated Ringers) 1,000 mls @ 75 mls/hr IV .[id number] SONU Last Admin: 04/29/21 01:56 Dose: 75 mls/hr Documented by: Infusion: 04/29/21 01:56 Dose: 0 mls/hr Documented by: Admin: 04/28/21 12:31 Dose: 75 mls/hr Documented by: MALOU Levofloxacin (Levaquin) 750 mg in 150 mls @ 100 mls/hr IV DAILY SONU; Protocol Last Infusion: 04/29/21 09:42 Dose: 100 mls/hr Documented by: Admin: 04/29/21 08:12 Dose: 100 mls/hr Documented by: Infusion: 04/28/21 12:37 Dose: 0 mls/hr Documented by: Admin: 04/28/21 10:16 Dose: 100 mls/hr Documented by: NABDon Oxycodone HCl (Oxycodone Hcl 5 Mg Tablet) 10 mg PO Q4HP PRN; Protocol PRN Reason: Per Pain Protocol Last Admin: 04/29/21 08:17 Dose: 10 mg Documented by: Admin: 04/29/21 03:15 Dose: 10 mg Documented by: Admin: 04/28/21 19:35 Dose: 10 mg Documented by: Admin: 04/28/21 09:58 Dose: 10 mg Documented by: MALOU Sodium Chloride (0.9 % Sodium Chloride 10 Ml Syringe) 10 ml IV Q8 SONU Last Admin: 04/29/21 04:49 Dose: Not Given Documented by: Admin: 04/28/21 20:24 Dose: Not Given Documented by: Admin: 04/28/21 13:14 Dose: Not Given Documented by: MALOU Shift Summary 04/29/21 05:44 Shift Summary by Brinda Ward Pt is A&O x4, pleasant and cooperative, uses call light appropriately. Pt has small incision to RUQ with tran and BRANDEE drain to RLQ with 70 of serosanguineous drainage. Shadow drainage to dressing over BRANDEE. Pt abd is firm and tender. Pt has had padmini x2 for pain, denies N/V. Pt is using urinal at bedside. Pt has LR running at 125 to 20g RFA. Pt has not been up yet. Pt should DC home today. Initialized on 04/29/21 05:44 - END OF NOTE
[2021-04-29] MEDS: MAGNESIUM HYDROXIDE 30 ML ORAL.SUSP PO PRN ×2 (12:26→16:32)
[2021-04-29] MEDS: HYDROmorphone 1 MG/ML SYRINGE IV PRN ×2 (16:32→23:05)
[2021-04-30] MEDS: oxyCODONE HCL 5 MG TABLET PO PRN ×4 (03:37→17:09)
[2021-04-30] MEDS: HYDROmorphone 1 MG/ML SYRINGE IV PRN ×4 (04:33→20:23)
[2021-04-30] MEDS: 0.9 % SODIUM CHLORIDE 10 ML SYRINGE IV SCH ×3 (04:33→20:23)
[2021-04-30] MEDS: MAGNESIUM HYDROXIDE 30 ML ORAL.SUSP PO PRN (08:09)
[2021-04-30] MEDS: LEVOFLOXACIN 750 MG/150 ML BAG IV SCH (08:10)
--- NOTE | 2021-04-30 13:30 | XRay Report ---
INDICATION: post operative ileus TECHNIQUE: Supine and upright abdomen. COMPARISON: CT scan dated 04/05/2021 FINDINGS:There is a surgical drain in the lower abdomen. There are skin tran in the right upper quadrant and surgical clips. Prominent gas-filled small bowel. Small bowel measures approximately 4 cm in cross-sectional diameter. There are mild associated air-fluid level on upright image. There is gas and fecal material within the colon. Bowel gas pattern is most consistent with postsurgical ileus. No significant pneumoperitoneum. There is no biliary or portal venous gas. No pneumatosis. IMPRESSION: 1. Mildly distended gas-filled small bowel 2. Catheter and fecal material within the colon 3. Findings consistent with postoperative ileus Interpreted and Authenticated by: Eugene Logan 04/30/21
[2021-04-30] MEDS: METOCLOPRAMIDE 10 MG/2 ML VIAL IV SCH ×3 (13:41→23:22)
[2021-04-30] MEDS: POLYETHYLENE GLYCOL 3350 17 GM PACKET PO SCH ×4 (13:42→18:48)
[2021-04-30 14:34] LABS: Basophils # (Auto) 0.03 K/mcL (0.00-0.30); Basophils % (Auto) 0.5 % (0.0-2.0); Eosinophils # (Auto) 0.14 K/mcL (0.00-0.70); Eosinophils % (Auto) 2.4 % (0.0-7.0); Hematocrit 28.9 % (40.1-51.0); Hemoglobin 9.9 g/dL (13.7-17.5); Lymphocytes # (Auto) 1.11 K/mcL (1.50-4.80); Lymphocytes % (Auto) 19.2 % (15.5-49.0); Mean Cell Volume 98.6 fL (80.0-100.0); Mean Corpuscular HGB Conc 34.3 g/dL (31.0-36.0); Mean Platelet Volume 12.7 fL (7.4-10.4); Monocytes # (Auto) 0.55 K/mcL (0.10-0.90); Monocytes % (Auto) 9.5 % (1.0-12.0); Neutrophils % (Auto) 68.4 % (38.0-78.0); Platelet Count 347 K/mcL (140-440); RBC 2.93 M/mcL (4.63-6.08); Red Cell Distribution Width 20.6 % (11.5-14.5); WBC 5.8 K/mcL (4.5-11.0)
[2021-04-30 15:40] LABS: ALT/SGPT 27 U/L (<40); AST/SGOT 21 U/L (<40); Albumin 3.8 gm/dL (3.2-5.2); Albumin/Globulin Ratio 1.5 (1.0-2.3); Alkaline Phosphatase 104 U/L (39-117); Bilirubin,Direct 0.3 mg/dL (<0.3); Blood Urea Nitrogen 12 mg/dL (8-23); Calcium 8.6 mg/dL (8.6-10.4); Carbon Dioxide 24 mmol/L (22-30); Chloride 94 mmol/L (96-108); Globulin 2.6 gm/dL (2.2-3.7); Glomerular Filtration Rate 81; Glucose 178 mg/dL (70-105); Lactate Dehydrogenase 236 U/L (135-225); Phosphorous 4.1 mg/dL (2.5-4.5); Triglycerides 58 mg/dL (<150); Uric Acid 4.7 mg/dL (2.5-8.0)
[2021-05-01] MEDS: oxyCODONE HCL 5 MG TABLET PO PRN ×3 (01:26→13:37)
[2021-05-01] MEDS: HYDROmorphone 1 MG/ML SYRINGE IV PRN ×3 (01:49→14:13)
[2021-05-01] MEDS: METOCLOPRAMIDE 10 MG/2 ML VIAL IV SCH ×4 (05:31→23:40)
[2021-05-01] MEDS: 0.9 % SODIUM CHLORIDE 10 ML SYRINGE IV SCH ×3 (05:32→21:58)
[2021-05-01] MEDS: LEVOFLOXACIN 750 MG/150 ML BAG IV SCH (08:00)
[2021-05-01] MEDS ORDERED: PROMETHAZINE 25 MG/ML VIAL IV PRN (08:39)
--- NOTE | 2021-05-01 09:37 | XRay Report ---
CLINICAL INFORMATION: f/u of ileus COMPARISON: 04/30/2021 FINDINGS: The stomach, small and large bowel remain mildly dilated compatible with mild ileus. Surgical drain overlies the left midabdomen.. There is no free air, soft tissue mass, organomegaly or pathologic calcification. IMPRESSION: Mild ileus stable Interpreted and Authenticated by: Eugene Dooley 05/01/21
--- NOTE | 2021-05-01 14:33 | General Surgery Progress Note ---
SUBJECTIVE Subjective Patient information: Note initiated : 05/01/21 at 2:32 pm Service Date, if different from initiated Date: 30 APR 2021 Patient: Donte Quispe 85 y/o M admitted on 04/30/21 for Laparoscopic Cholecystectomy No Grams. Chief Complaint: [] Interval history: Patient has not had any results with passage of flatus or bowel movement. He had nausea with vomiting associated with Milk of magnesia. Abdominal x-ray shows dilated small bowel and colon with gas extending into the distal rectosigmoid. He states that he has not had any passage of flatus at all. Constitutional Vitals: Vital Signs Temp Pulse Resp BP Pulse Ox 97.5 F 87 20 130/59 95 05/01/21 12:00 05/01/21 12:00 05/01/21 12:00 05/01/21 12:00 05/01/21 12:00 Period Temp Pulse Resp BP Sys/Alvarez Pulse Ox Last 24 Hr 97.5 F-98.2 F 86-91 16-20 117-137/57-73 92-98 Intake and Output 05/01/21 05/01/21 05/01/21 05:59 13:59 21:59 Intake Total 400 390 Output Total 405 550 Balance -5 -160 Intake & Output: Intake & Output 05/01/21 05/01/21 05/01/21 05:59 13:59 21:59 Intake Total 400 390 Output Total 405 550 Balance -5 -160 Intake: IV 150 Oral 400 240 Output: Drainage 105 Right Lower Abdomen 105 Drainage 50 Right Lower Abdomen 50 Urine Catheter Amount 200 Void Amount 300 Emesis 300 Other: Meal Lunch Percent of Meal Consumed 75% Feeding Ability Assist with Tray Set Up Urine Appearance Clear Urine Color Dark Yellow Urine Odor Normal # Voids 1 # Emeses 0 ENT ENT exam: Present mucous membranes moist and normal exam Neck Neck exam: Present full ROM; Absent tenderness Respiratory Respiratory exam: Present normal respiratory exam and CTAB; Absent rhonchi or wheezes Cardiovascular Cardiovascular exam: Present normal rate and rhythm, RRR, +S1 and +S2; Absent gallop or JVD GI/Abdominal GI/Abdominal exam: Present distended (Moderately severe distention with tenderness to palpation) and hyperactive bowel sounds Extremities Exam Extremities exam: Present full ROM and neurovascular intact Neurological Exam Neurological exam: Present alert, normal gait and oriented X3 Psychiatric Psychiatric exam: Present anxious and normal mood A/P Assessment and plan (1) Constipation by delayed colonic transit: Status: Acute (2) Adynamic ileus: Status: Acute (3) Type 2 diabetes mellitus: Status: Chronic (4) Cholelithiasis and cholecystitis without obstruction: Status: Acute Narrative A/P Narrative: Metoclopramide 10 mg IV every 6 hours Delayed discharge due to severe ileus and constipation Add MiraLAX Time Spent With Patient Time: Total time spent is greater than 50% in coordination of care (as documented) at patient's floor/unit and/or counseling patient:
--- NOTE | 2021-05-01 14:46 | General Surgery Progress Note ---
SUBJECTIVE Subjective Patient information: Note initiated : 05/01/21 at 2:45 pm Service Date, if different from initiated Date: [] Patient: Donte Quispe 85 y/o M admitted on 04/30/21 for Laparoscopic Cholecystectomy No Grams. Chief Complaint: [] Interval history: Patient still has not had any success with the bowel movements. He has had minimal flatus. He has significant abdominal distention. His oral intake is minimal at this time because of distention and episodes of emesis with the MiraLAX. Abdominal x-rays shows dilated small bowel and colon with gas extending down to the rectum. White blood count 5.8, hemoglobin 9.9, hematocrit 28.9. Constitutional Vitals: Vital Signs Temp Pulse Resp BP Pulse Ox 97.5 F 87 20 130/59 95 05/01/21 12:00 05/01/21 12:00 05/01/21 12:00 05/01/21 12:00 05/01/21 12:00 Period Temp Pulse Resp BP Sys/Alvarez Pulse Ox Last 24 Hr 97.5 F-98.2 F 86-91 16-20 117-137/57-73 92-98 Intake and Output 05/01/21 05/01/21 05/01/21 05:59 13:59 21:59 Intake Total 400 390 Output Total 405 550 Balance -5 -160 Intake & Output: Intake & Output 05/01/21 05/01/21 05/01/21 05:59 13:59 21:59 Intake Total 400 390 Output Total 405 550 Balance -5 -160 Intake: IV 150 Oral 400 240 Output: Drainage 105 Right Lower Abdomen 105 Drainage 50 Right Lower Abdomen 50 Urine Catheter Amount 200 Void Amount 300 Emesis 300 Other: Meal Lunch Percent of Meal Consumed 75% Feeding Ability Assist with Tray Set Up Urine Appearance Clear Urine Color Dark Yellow Urine Odor Normal # Voids 1 # Emeses 0 Head Head exam: Present atraumatic, normal inspection and normocephalic Eye Eye exam: Present EOMI Pupils: Present normal accommodation and PERRL ENT ENT exam: Present mucous membranes dry, mucous membranes moist, normal exam and normal oropharynx Neck Neck exam: Present full ROM Respiratory Respiratory exam: Present normal respiratory exam and CTAB Cardiovascular Cardiovascular exam: Present normal rate and rhythm, RRR, +S1 and +S2; Absent JVD GI/Abdominal GI/Abdominal exam: Present normal bowel sounds, distended (Moderately severe distention with tenderness), firm, hyperactive bowel sounds and tenderness Extremities Exam Extremities exam: Present full ROM, normal inspection and neurovascular intact Neurological Exam Neurological exam: Present alert and oriented X3; Absent motor sensory deficit Psychiatric Psychiatric exam: Present normal affect and normal mood A/P Assessment and plan (1) Adynamic ileus: Status: Acute (2) Constipation by delayed colonic transit: Status: Acute (3) Cholelithiasis and cholecystitis without obstruction: Status: Acute (4) Type 2 diabetes mellitus: Status: Chronic Narrative A/P Narrative: Soapsuds enema If no results will proceed with Gastrografin enema contrast study to rule out distal obstruction Continue metoclopramide Time Spent With Patient Time: Total time spent is greater than 50% in coordination of care (as documented) at patient's floor/unit and/or counseling patient:
[2021-05-02] MEDS: 0.9 % SODIUM CHLORIDE 10 ML SYRINGE IV SCH ×4 (06:34→23:11)
[2021-05-02] MEDS: METOCLOPRAMIDE 10 MG/2 ML VIAL IV SCH ×4 (06:34→23:23)
--- NOTE | 2021-05-02 08:29 | XRay Report ---
CLINICAL INFORMATION: f/u of ileus COMPARISON: 05/01/2021 FINDINGS: On today's exam, stomach and proximal /mid small bowel are moderately dilated with decompression of the distal small bowel and colon. There is minimal air and stool in the rectosigmoid region. Findings suspicious for distal small bowel obstruction. Surgical drain overlies the left midabdomen.. There is no free air, soft tissue mass, organomegaly or pathologic calcification. IMPRESSION: Suspect distal small bowel obstruction Interpreted and Authenticated by: Eugene Dooley 05/02/21
[2021-05-02] MEDS: LEVOFLOXACIN 750 MG/150 ML BAG IV SCH (09:02)
[2021-05-02] MEDS: oxyCODONE HCL 5 MG TABLET PO PRN ×3 (10:58→23:23)
[2021-05-02] MEDS: HYDROmorphone 1 MG/ML SYRINGE IV PRN ×2 (12:27→19:32)
[2021-05-02] MEDS ORDERED: IOPAMIDOL 100 ML BOTTLE IV ONE (15:43)
[2021-05-02] MEDS: PYRIDOSTIGMINE BROMIDE 10 MG/2 ML AMPUL SC SCH ×2 (17:33→23:22)
[2021-05-03] MEDS: METOCLOPRAMIDE 10 MG/2 ML VIAL IV SCH ×2 (05:51→12:17)
[2021-05-03] MEDS: 0.9 % SODIUM CHLORIDE 10 ML SYRINGE IV SCH ×3 (05:52→23:36)
[2021-05-03] MEDS: PYRIDOSTIGMINE BROMIDE 10 MG/2 ML AMPUL SC SCH ×4 (05:52→23:36)
--- NOTE | 2021-05-03 06:14 | Cat Scan Report ---
CLINICAL INFORMATION: Abdominal pain and distention. Possible distal small bowel obstruction. Status post cholecystectomy COMPARISON: Preoperative abdomen and pelvic CT 04/05/2021 TECHNIQUE: Following enteric contrast, 80 cc of Isovue-370 were injected intravenously, and 60 seconds later, 0.625 mm helical slices were obtained from the mid heart through the subtrochanteric regions. Following reconstruction, 2.5 mm sagittal, coronal and axial reformatted images were processed and reviewed at bone, lung and soft tissue windows. Five minutes later, 0.625 mm helical slices were obtained from the mid heart through the kidneys and viewed at soft tissue windows.The exam was performed using radiation dose optimization techniques including, but not limited to, automated exposure control, adjustment of the mA and/or kV according to patient size and use of iterative reconstruction technique. FINDINGS: The lung bases show a band of fibrosis extending across the superior segment left lower lobe with scattered atelectasis or fibrosis in both inferior lower lobes.. No effusions. The visualized heart is mildly enlarged with calcification in the aortic valve and scattered calcific plaque in the coronary arteries. Abdominal images show the gallbladder is surgically absent. Minimal edema in the tristin hepatis is seen-as expected. Postcholecystectomy clips noted. The intrahepatic and common bile ducts are normal caliber: CBD is 5 mm. The liver, both adrenal glands,, spleen, pancreas and aorta, including aortic branches, are normal in size, configuration and attenuation without focal lesion. 2.5 cm simple cyst inferior pole right kidney is again noted. No significant renal abnormality. Pelvic images show urinary bladder is unremarkable. The prostate is slightly enlarged 4.9 cm in transverse dimension with lower attenuation. No change from 06/03/[address] The stomach, small and large bowel are symmetrically dilated compatible with moderate ileus. Moderate amount of stool is seen within the right colon. No evidence of bowel obstruction. A 4.1 cm periampullary diverticulum demonstrates long-term stability. Surgical drains in the peritoneal cavity of the right upper quadrant appreciated. No undrained fluid appreciated. Bone windows show stable degeneration in the lumbar spine. Right total hip prostheses anatomically aligned without loosening infection or other complication. 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 IMPRESSION: 1. No evidence of bowel obstruction. Moderate ileus with a large amount of stool in the right colon. 2. Cholecystectomy changes. Typical postoperative appearance minimal edema in the tristin hepatis. Right upper quadrant surgical drains are in satisfactory position-no undrained fluid. 3. 4 cm periampullary diverticula-stable. 4. Mild prostate enlargement with possible TURP defect in the prostatic urethra-stable Interpreted and Authenticated by: Eugene Dooley 05/03/21
[2021-05-03] MEDS: LEVOFLOXACIN 750 MG/150 ML BAG IV SCH ×2 (09:15→10:54)
[2021-05-03] MEDS ORDERED: DIATRIZOATE MEGLU/DIATRIZO SOD 120 ML BOTTLE PO ONE (10:22)
--- NOTE | 2021-05-03 10:36 | XRay Report ---
CLINICAL INFORMATION: Moderate ileus. Possible bowel obstruction. Evaluate TECHNIQUE: Undiluted hypertonic Hypaque was infused through the indwelling rectal tube refluxed throughout the colon to the cecum. Small amount of reflux into the appendix noted. Terminal ileal reflux. Spot and overhead images were obtained. Following colonic filling, the tube was unclamped and the bag was dropped resulting in partial colonic evacuation. The tube was removed and the patient evacuated additional stool and the bathroom. Post evacuation film was obtained. Total fluoroscopy time: three minutes FINDINGS: Few sigmoid diverticuli appreciated of the no evidence of diverticulitis. No focal colonic lesion. The colon is normal in caliber with moderate stool seen throughout the colon including a large amount in the cecal region. Postevacuation film shows only minimal residual stool. IMPRESSION: Mild ileus with a large amount of colonic stool. This was successfully evacuated following instillation hypertonic Hypaque. Minimal residual stool seen on the postevacuation film Interpreted and Authenticated by: Eugene Dooley 05/03/21
--- NOTE | 2021-05-03 11:15 | General Surgery Progress Note ---
SUBJECTIVE Subjective Patient information: Note initiated : 05/03/21 at 11:09 am Service Date, if different from initiated Date: [] Patient: Donte Quispe 85 y/o M admitted on 04/30/21 for Laparoscopic Cholecystectomy No Grams. Chief Complaint: [] Interval history: Patient received Regonol every 6 hours during the night with passage of flatus but no significant movement of stool. He had significant distention this morning. He has just completed a Hypaque Gastrografin enema which shows no evidence of obstruction extending to the cecum. He evacuated large volumes of gas and stool after evacuation. Post evacuation films show near complete evacuation of the large volume of stool that was in the right colon. Patient states that he feels much better. He denies nausea at this time. The films were reviewed with radiology and it is their impression that this was a successful study. Constitutional Vitals: Vital Signs Temp Pulse Resp BP Pulse Ox 97.6 F 71 16 113/62 93 05/03/21 07:36 05/03/21 07:36 05/03/21 07:36 05/03/21 07:36 05/03/21 07:36 Period Temp Pulse Resp BP Sys/Alvarez Pulse Ox Last 24 Hr 97.6 F-98.8 F 71-84 16-20 113-141/54-67 93-99 Intake and Output 05/02/21 05/03/21 05/03/21 21:59 05:59 13:59 Intake Total 0 Output Total 1080 525 690 Balance -1080 -525 -690 Weight 172 lb 12.8 oz Intake & Output: Intake & Output 05/02/21 05/03/21 05/03/21 21:59 05:59 13:59 Intake Total 0 Output Total 1080 525 690 Balance -1080 -525 -690 Weight 172 lb 12.8 oz Intake: Oral 0 Output: Drainage 30 75 40 Right Lower Abdomen 30 75 40 Void Amount 1050 450 650 Other: Urine Appearance Clear Clear Clear Urine Color Bright Yellow Bright Yellow Bright Yellow Urine Odor Normal ENT ENT exam: Present mucous membranes moist and normal oropharynx Neck Neck exam: Present full ROM and normal inspection; Absent tenderness Respiratory Respiratory exam: Present normal respiratory exam and CTAB; Absent rhonchi or wheezes Cardiovascular Cardiovascular exam: Present normal rate and rhythm, RRR, +S1 and +S2; Absent JVD GI/Abdominal GI/Abdominal exam: Present normal bowel sounds, soft (Abdomen is much softer; tenderness has resolved; good active bowel sounds) and distended (Distention is significantly improved) Additional comments: There is mild serous drainage from the lower incision Extremities Exam Extremities exam: Present full ROM, normal inspection and neurovascular intact Neurological Exam Neurological exam: Present alert, normal gait and oriented X3; Absent motor sensory deficit Psychiatric Psychiatric exam: Present normal affect and normal mood A/P Assessment and plan (1) Constipation by delayed colonic transit: Status: Acute (2) Adynamic ileus: Status: Acute (3) Cholelithiasis and cholecystitis without obstruction: Status: Acute (4) Type 2 diabetes mellitus: Status: Chronic Narrative A/P Narrative: Full liquid diet Regular diet for evening meal Probable discharge home tomorrow Time Spent With Patient Time: Total time spent is greater than 50% in coordination of care (as documented) at patient's floor/unit and/or counseling patient:
--- NOTE | 2021-05-03 12:18 | Operative Note ---
DATE OF OPERATION: 04/28/2021 DATE OF PROCEDURE: 04/28/2021 PREOPERATIVE DIAGNOSIS: Cholelithiasis with cholecystitis. POSTOPERATIVE DIAGNOSIS: Cholelithiasis with cholecystitis. PROCEDURE: Laparoscopic cholecystectomy. FINDINGS: Edematous gallbladder with stones and sludge. DESCRIPTION OF PROCEDURE: Under general anesthesia, the patient's abdomen was prepped and draped in a sterile field. Timeout procedure was carried out as per protocol. A supraumbilical incision was made and Veress needle was inserted uneventfully. Abdomen was insufflated with 2.5 liters of CO2. A 12 mm port was placed. Laparoscope was placed. Under videoscopic guidance, a 12 mm port and two 5 mm ports were placed in the right subcostal region. The patient was placed in reverse Trendelenburg position and rotated to the left. The gallbladder was very hard and edematous. It was grasped and placed on stretch. Infundibulum was dissected and the cystic duct and cystic artery were sequentially identified and dissected and followed back to the gallbladder. Cystic duct was transected at its junction with the gallbladder using the Endo ANDREA stapler. Cystic artery branch was clipped with four clips and divided. The gallbladder was then from the hepatic bed using electrocautery. It was placed in an Endopouch and retrieved. It contained stones and sludge. More irrigation was carried out. Hemostasis was achieved. A #10 Hal drain was placed and brought out through the lateral stab incision. CO2 was allowed to escape from the abdomen and the ports were removed. The fascia at the umbilicus was closed with interrupted 0 Vicryl. Skin was closed with tran. Tegaderm dressing was placed. The patient tolerated the procedure well. The drain was secured with 2-0 nylon. He was awakened, transferred to a bed, and taken to the postanesthetic care unit in satisfactory condition. LCS:carrington Job ID: [id number] Doc ID: [id number] Tej Elliott M.D.
[2021-05-03] MEDS ORDERED: PROMETHAZINE 25 MG TABLET PO PRN (13:37)
[2021-05-03] MEDS ORDERED: LEVOFLOXACIN 750 MG TABLET PO ONE (14:00)
[2021-05-03] MEDS: oxyCODONE HCL 5 MG TABLET PO PRN ×3 (14:56→23:36)
[2021-05-04] MEDS: oxyCODONE HCL 5 MG TABLET PO PRN ×2 (05:08→11:59)
[2021-05-04] MEDS: PYRIDOSTIGMINE BROMIDE 10 MG/2 ML AMPUL SC SCH ×2 (05:09→11:36)
[2021-05-04] MEDS: 0.9 % SODIUM CHLORIDE 10 ML SYRINGE IV SCH (05:11)
[2021-05-04] MEDS ORDERED: LEVOFLOXACIN 750 MG TABLET PO SCH (09:00)
--- NOTE | 2021-05-04 09:33 | XRay Report ---
CLINICAL INFORMATION: f/u of colonic ileus COMPARISON: 05/02/2021 FINDINGS: The small and large bowel remain mildly dilated. Moderate amount of residual enteric contrast in the right colon and the distal descending colon. There is only minimal stool scattered within the colon. There is no free air, soft tissue mass, organomegaly or pathologic calcification. IMPRESSION: Mild ileus-improving. Volume of stool has decreased considerably Interpreted and Authenticated by: Eugene Dooley 05/04/21
--- NOTE | 2021-05-04 12:35 | Discharge Summary ---
Discharge Provider Provider Patient information: Note initiated : 05/04/21 at 12:27 pm Service Date, if different from initiated Date: [] Patient: Donte Quispe 85 y/o M admitted on 04/30/21 for Laparoscopic Cholecystectomy No Grams. Chief Complaint: [] Date of admission: 04/30/21 05:00 Discharge date: 05/04/21 Primary care physician: Katie Elliott Admitting clinician: Tej Elliott Attending physician on admission: Tej Elliott Attending physician on discharge: Tej Elliott Discharging clinician: Tej Elliott COURSE Hospital Course Hospital course: 85-year-old male who underwent laparoscopic cholecystectomy on May 02. He had significant constipation preoperatively and had difficulty with flatus and bowel movement in the postoperative.. He had significant distention which became progressively worse. He developed nausea. Diet was not advanced. He was given laxatives, metoclopramide, Regonol without improvement. He received 2 soapsuds enemas without improvement. After discussion with radiology the radiologist decided to do a Hypaque contrast enema. The fluid was easily infused to the cecum. There was no evidence of obstruction. The postevacuation film showed most of the stool on the right colon to have been evacuated. He has had flatus and more bowel movements overnight. He has mild bloating at this time but is tolerating diet without difficulty. Patient is discharged home with plans for follow-up in 1 week Discharge diagnosis: Cholelithiasis with cholecystitis Secondary discharge diagnosis: Slow transit constipation Adynamic ileus Type 2 diabetes mellitus Chronic macrocytic anemia Situational depression Mild dementia Reason for admission: Post procedure cholecystectomy Procedures: Laparoscopic cholecystectomy Pertinent studies/significant findings: Hypaque contrast enema Complications: None Time Spent with Patient Time attestation: Total time spent providing and/or coordinating discharge services: Physical Examination Vital Signs Vital signs: Temp Pulse Resp BP Pulse Ox 97.5 F 79 20 121/61 99 05/04/21 07:46 05/04/21 07:46 05/04/21 07:46 05/04/21 07:46 05/04/21 07:46 Discharge Plan Patient/Caregiver Discharge Instructions Activity: increase activity as tolerated Diet: Regular Diet and Low Fat Prescriptions: New hydrocodone-acetaminophen 10-325 mg Tablet 1 tab PO Q4H PRN (Reason: Pain) Qty: 30 0RF Continued tamsulosin 0.4 mg capsule 0.4 mg PO QDAY 0RF Hold Instructions: Doctor's Order omeprazole 40 mg capsule,delayed release(DR/EC) 40 mg PO BID 90 Days Qty: 180 4RF duloxetine 60 mg capsule,delayed release(DR/EC) 60 mg PO QDAY Qty: 90 2RF trazodone 50 mg tablet See Rx Instructions .ROUTE .COMPLEX Qty: 180 0RF Dose Instruction: TAKE 1 TO 2 TABLET BY MOUTH EVERY NIGHT AT BEDTIME Rx Instructions: TAKE 1 TO 2 TABLET BY MOUTH EVERY NIGHT AT BEDTIME magnesium 200 mg tablet 200 mg PO DAILY 0RF calcium carbonate-vitamin D3 [Calcium 600 + D(3)] 600 mg(1,500mg) -400 unit tablet 1 tab PO QDAY 0RF cinnamon bark [Cinnamon] 500 mg capsule 1,000 mg PO BID 0RF cholecalciferol (vitamin D3) 25 mcg (1,000 unit) tablet 2,000 unit PO DAILY 0RF vitamin K2 40 MCG tablet 40 mcg PO DAILY 0RF midodrine 5 mg tablet 10 mg PO TID 0RF Rx Instructions: do not give last dose of day after 6PM or within 4 hrs of bedtime DHEA 50 mg Tablet 50 mg PO QDAY 0RF [id number] 20-15-57-150 mg Capsule 1 cap PO DAILY 0RF multivitamin Tablet 1 tab PO QAM 0RF hydrocortisone 0.25 % Lotion 1 ea TOPICAL QDAY 0RF clobetasol 0.05 % solution 1 applic topical QDAY 0RF Testosterone Support 1 tab PO QDAY 0RF levothyroxine 50 mcg tablet 50 mcg PO QDAY 0RF Discontinued hydrocodone-acetaminophen 10-325 mg tablet 1 tab PO .Q4-6H PRN (Reason: Pain) 0RF Follow Up Plan Follow up with: Tej Elliott MD [Physician] - 05/15/21 9:30 am Patient Disposition: Home, Self-Care Plan of Treatment: Use MiraLAX 2-3 times daily to prevent constipation May also use Colace daily Milk of magnesia 2 tablespoons every 4-6 hours as needed for severe constipation Prognosis: Good Rehab Potential: Good I certify that the patient requires SNF services: No Overall status at discharge: patient is progressing back to baseline Discharge Orders: Discharge Order (Routine); Ordered 05/04/21 Ordered By: Tej Elliott Pending Pending Pending: Resuscitation Status Resuscitate (Full Code) Diet Regular Diet Start SatMay 03 1699 Levofloxacin (Levofloxacin 750 Mg Tablet) 750 mg PO DAILY SONU; Protocol Last Admin: 05/04/21 08:55 Dose: 750 mg Documented by: ANGEL LUIS Magnesium Hydroxide (Magnesium Hydroxide 30 Ml Oral.Susp) 30 ml PO BIDP PRN PRN Reason: Constipation Last Admin: 04/30/21 08:09 Dose: 30 ml Documented by: Admin: 04/29/21 16:32 Dose: 30 ml Documented by: Admin: 04/29/21 12:26 Dose: 30 ml Documented by: MALOU Oxycodone HCl (Oxycodone Hcl 5 Mg Tablet) 10 mg PO Q4HP PRN; Protocol PRN Reason: Per Pain Protocol Last Admin: 05/04/21 11:59 Dose: 10 mg Documented by: ANGEL LUIS Admin: 05/04/21 05:08 Dose: 10 mg Documented by: Admin: 05/03/21 23:36 Dose: 10 mg Documented by: Admin: 05/03/21 19:24 Dose: 10 mg Documented by: Admin: 05/03/21 14:56 Dose: 10 mg Documented by: Cosigned by: Admin: 05/02/21 23:23 Dose: 10 mg Documented by: Admin: 05/02/21 17:44 Dose: 10 mg Documented by: Admin: 05/02/21 10:58 Dose: 10 mg Documented by: Admin: 05/01/21 13:37 Dose: 10 mg Documented by: Admin: 05/01/21 07:56 Dose: 10 mg Documented by: Admin: 05/01/21 01:26 Dose: 10 mg Documented by: Admin: 04/30/21 17:09 Dose: 10 mg Documented by: Admin: 04/30/21 12:48 Dose: 10 mg Documented by: Admin: 04/30/21 08:10 Dose: 10 mg Documented by: Admin: 04/30/21 03:37 Dose: 10 mg Documented by: Admin: 04/29/21 22:16 Dose: 10 mg Documented by: Admin: 04/29/21 14:35 Dose: 10 mg Documented by: Admin: 04/29/21 08:17 Dose: 10 mg Documented by: [email or web address] Admin: 04/29/21 03:15 Dose: 10 mg Documented by: Admin: 04/28/21 19:35 Dose: 10 mg Documented by: Admin: 04/28/21 09:58 Dose: 10 mg Documented by: MALOU Pyridostigmine [place] (Pyridostigmine [place] 10 Mg/2 Ml Ampul) 5 mg SC Q6H [facility] Last Admin: 05/04/21 11:36 Dose: 5 mg Documented by: ANGEL LUIS Admin: 05/04/21 05:09 Dose: 5 mg Documented by: Admin: 05/03/21 23:36 Dose: 5 mg Documented by: Admin: 05/03/21 17:43 Dose: 5 mg Documented by: Cosigned by: Admin: 05/03/21 11:15 Dose: 5 mg Documented by: Cosigned by: [email or web address] Admin: 05/03/21 05:52 Dose: 5 mg Documented by: Admin: 05/02/21 23:22 Dose: 5 mg Documented by: Admin: 05/02/21 17:33 Dose: 5 mg Documented by: MARBELLA Sodium Chloride (0.9 % Sodium Chloride 10 Ml Syringe) 10 ml IV Q8 [facility] Last Admin: 05/04/21 05:11 Dose: 10 ml Documented by: Admin: 05/03/21 23:36 Dose: 10 ml Documented by: Admin: 05/03/21 15:24 Dose: Not Given Documented by: Admin: 05/03/21 05:52 Dose: 10 ml Documented by: Admin: 05/02/21 23:11 Dose: 10 ml Documented by: Admin: 05/02/21 13:52 Dose: Not Given Documented by: Admin: 05/02/21 11:46 Dose: 10 ml Documented by: Admin: 05/02/21 06:34 Dose: 10 ml Documented by: Admin: 05/01/21 21:58 Dose: 10 ml Documented by: Admin: 05/01/21 13:37 Dose: 10 ml Documented by: Admin: 05/01/21 05:32 Dose: 10 ml Documented by: Admin: 04/30/21 20:23 Dose: 10 ml Documented by: Admin: 04/30/21 14:03 Dose: 10 ml Documented by: [email or web address] Admin: 04/30/21 04:33 Dose: 10 ml Documented by: Admin: 04/29/21 21:04 Dose: 10 ml Documented by: Admin: 04/29/21 15:03 Dose: 10 ml Documented by: [email or web address] Admin: 04/29/21 04:49 Dose: Not Given Documented by: Admin: 04/28/21 20:24 Dose: Not Given Documented by: Admin: 04/28/21 13:14 Dose: Not Given Documented by: [email or web address] Shift Summary 05/04/21 04:56 Shift Summary by Stacy Abbasi 85 y/o male. admitted 0n 04/28 for lap franc, has 3 lap sites with tran and a BRANDEE site, all dressings were changed this afternoon. He has ambulated independently in the field with FWW. Medicated with Oxycodone (10mg). He has Gastrografin yesterday with great results and should go home today. VSS on RA. Able to make needs known. Will update at bedside. Initialized on 05/04/21 04:56 - END OF NOTE
== END 2021-05-04 13:45 | disposition home or self-care (01) | DRG 445 ==
LOC: SUR 05:56 → MEDSUR 09:30
PROVIDERS: ADMIT Family Medicine Adult Medicine; ATTEND Family Medicine Adult Medicine